=== PATIENT | male | born 1955 | race Caucasian/White ===

== ENCOUNTER 2021-05-19 09:28 | Inpatient (IN) | payer OTHER, MEDICARE ==
[~2021-05-19] VITALS: Ht 185.4 cm; Wt 87.3 kg
[2021-05-19 10:39] LABS: Alanine Aminotransfer (ALT/SGP 16 U/L (12-78); Albumin, Blood 3.4 g/dL (3.4-5.0); Albumin/Globulin Ratio 0.9 (0.8-1.8); Alk Phos 87 U/L (50-136); Anion Gap 6 mmol/L (6-16); Aspartate Aminotrans (AST/SGOT 22 U/L (12-37); Bilirubin, Total 1.1 mg/dL (0.1-1.0); Blood Urea Nitrogen 18 mg/dL (8-24); Bun/Creatinine Ratio 16.2 (12.0-20.0); CO2, Blood 25 mmol/L (21-32); CPK Creatine Kinase 254 U/L (39-308); Chloride, Blood 109 mmol/L (98-108); Creatinine, Blood 1.11 mg/dL (0.60-1.20); Ethanol (Alcohol), Blood, Med <3 mg/dL; Globulin, Blood 3.6 g/dL (2.2-4.0); Glomerular Filtration Rate >60 (60-); Glucose, Blood 92 mg/dL (70-99); Magnesium, Blood 2.6 mg/dL (1.6-2.4); Potassium, Blood 3.8 mmol/L (3.5-5.5); Sodium, Blood 140 mmol/L (136-145)
[2021-05-19 10:59] LABS: BASOPHILS ABSOLUTE AUTO 0.02 K/mm3 (0.00-0.23); BASOPHILS PERCENT AUTO 0 % (0-2); EOSINOPHILS PERCENT AUTO 0 % (0-6); Hematocrit 41.3 % (37.0-53.0); Hemoglobin 12.9 g/dL (13.5-17.5); IMMATURE GRAN ABSOLUTE AUTO 0.06 K/mm3 (0.00-0.10); IMMATURE GRAN PERCENT AUTO 1 % (0-1); LYMPHOCYTES ABSOLUTE AUTO 0.93 K/mm3 (0.84-5.20); LYMPHOCYTES PERCENT AUTO 15 % (21-46); MONOCYTES ABSOLUTE AUTO 0.42 K/mm3 (0.16-1.47); MONOCYTES PERCENT AUTO 7 % (4-13); Mean Corpuscular HGB 30.9 pg (26.0-34.0); Mean Corpuscular HGB Conc 31.2 g/dL (31.5-36.5); Mean Corpuscular Volume 99 fL (80-100); NEUTROPHILS ABSOLUTE AUTO 4.77 K/mm3 (1.96-9.15); NEUTROPHILS PERCENT AUTO 77 % (41-73); NRBC ABSOLUTE 0.02 K/mm3 (0.00-0.02); NRBC Auto 0.3 /100 WBC (0.0-0.2); RDW Standard Deviation 54.4 fL (35.1-46.3); Red Blood Cell Count 4.17 M/mm3 (4.30-5.90)
[2021-05-19 11:02] LABS: International Normalized Ratio 1.13; Prothrombin Time Results 11.8 Sec (9.7-11.5)
[2021-05-19 11:11] LABS: Mean Platelet Volume 10.4 fL (9.1-12.4)
[2021-05-19 11:27] LABS: Source, Urine Clean Catch
[2021-05-19 11:52] LABS: Platelet Count 99 K/mm3 (150-400)
[2021-05-19 11:57] LABS: Blood, Urine 5+ (Neg); Glucose Qualitative, Urine Neg (Neg); Ketones, Urine 1+ (Neg); Leukocyte Esterase, Urine 1+ (Neg); Nitrite, Urine Pos (Neg); Protein, Urine 3+ (Neg); Specific Gravity, Urine 1.025 (1.003-1.022); Urobilinogen, Urine 1+ (Normal)
[2021-05-19 11:58] LABS: Bilirubin, Urine 1+ (Neg)
[2021-05-19 12:07] LABS: Appearance, Urine Hazy (Clear); Color, Urine Brown (P-Yellow)
[2021-05-19 12:08] LABS: Amorphous Light (0-Heavy); Bacteria Few /hpf; Mucus Heavy (0-Heavy); Red Blood Cells, Urine 25-50 /hpf (0-2); Squamous Epithelial Cells Rare /hpf (Few)
[2021-05-19 12:12] LABS: U Amphetamine Screen Not Detected; U Barbituate Screen Not Detected; U Benzodiazapine Screen Not Detected; U Buprenorphine Screen Not Detected; U Cannabinoids Screen DETECTED; U Cocaine Screen Not Detected; U Methadone Screen Not Detected; U Methamphetamine Screen Not Detected; U Opiates Screen Not Detected; U Oxycodone Screen Not Detected; U Phencyclidine Screen Not Detected; U Propoxyphene Screen Not Detected
[2021-05-19 12:13] LABS: Influenza A, PCR NEGATIVE (NEGATIVE); Influenza B, PCR NEGATIVE (NEGATIVE); Resp Syncytial Virus, PCR NEGATIVE (NEGATIVE); SARS-Cov-2 (COVID-19) PCR, MMC NEGATIVE (NEGATIVE)
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
--- NOTE | 2021-05-20 03:43 | NUR ---
SHIFT SUMMARY PT HAS SLEPT MOST OF THE NIGHT. BEDSIDE SWALLOW EVAL DONE AT BEDSIDE ORDERED AND PT DID WELL AND HAD NO DIFFICULTY SWALLOWING. THERAPY CONSULT ORDERED FOR TODAY. PT ON 6L VIA HIGH FLOW NASAL CANNULA, PT HAS BRIEF PERIODS OF APNEA WHILE SLEEPING. CPAP WAS ORDERED BUT PT TRIED AND REFUSED TO WEAR STATING THAT IT WAS UNCOMFORTABLE. PT MAINTAINS SATS IN THE MID 90'S. LUNGS COARSE WITH FINE CRACKLES. NO ACUTE CHANGES OVERNIGHT. BED IN LOWEST POSITION, CALL LIGHT WITHIN REACH.
[2021-05-20 05:03] LABS: BASOPHILS ABSOLUTE AUTO 0.01 K/mm3 (0.00-0.23); BASOPHILS PERCENT AUTO 0 % (0-2); EOSINOPHILS PERCENT AUTO 0 % (0-6); Hematocrit 36.1 % (37.0-53.0); Hemoglobin 10.8 g/dL (13.5-17.5); IMMATURE GRAN ABSOLUTE AUTO 0.02 K/mm3 (0.00-0.10); IMMATURE GRAN PERCENT AUTO 0 % (0-1); LYMPHOCYTES ABSOLUTE AUTO 0.69 K/mm3 (0.84-5.20); LYMPHOCYTES PERCENT AUTO 11 % (21-46); MONOCYTES ABSOLUTE AUTO 0.36 K/mm3 (0.16-1.47); MONOCYTES PERCENT AUTO 6 % (4-13); Mean Corpuscular HGB 31.6 pg (26.0-34.0); Mean Corpuscular HGB Conc 29.9 g/dL (31.5-36.5); Mean Platelet Volume 9.8 fL (9.1-12.4); NEUTROPHILS ABSOLUTE AUTO 5.42 K/mm3 (1.96-9.15); NEUTROPHILS PERCENT AUTO 83 % (41-73); Platelet Count 94 K/mm3 (150-400); RDW Coefficient Variation 14.8 % (11.7-14.2); RDW Standard Deviation 57.5 fL (35.1-46.3); Red Blood Cell Count 3.42 M/mm3 (4.30-5.90)
[2021-05-20 05:24] LABS: Mean Corpuscular Volume 106 fL (80-100)
[2021-05-20 05:35] LABS: Alanine Aminotransfer (ALT/SGP 13 U/L (12-78); Alk Phos 82 U/L (50-136); Anion Gap 6 mmol/L (6-16); Aspartate Aminotrans (AST/SGOT 20 U/L (12-37); Bilirubin, Total 0.6 mg/dL (0.1-1.0); Blood Urea Nitrogen 20 mg/dL (8-24); Bun/Creatinine Ratio 17.1 (12.0-20.0); CO2, Blood 31 mmol/L (21-32); Calcium, Blood 7.9 mg/dL (8.5-10.1); Chloride, Blood 106 mmol/L (98-108); Creatinine, Blood 1.17 mg/dL (0.60-1.20); Glomerular Filtration Rate >60 (60-); Glucose, Blood 87 mg/dL (70-99); Potassium, Blood 3.4 mmol/L (3.5-5.5); Sodium, Blood 143 mmol/L (136-145)
--- NOTE | 2021-05-20 06:41 | NUR ---
URINARY RETENTION PT IS RETAINING AND HAS NOT VOIDED DURING SHIFT. PT BLADDER SCANNED, [address] DINH CALLED AND NOTIFIED. RECEIVED ORDER FOR STRAIGHT CATH NOW AND BLADDER SCANS Q 6HR, STRAIGHT CATH IF GREATER THAN 330. PT STRAIGHT CATH THIS AM AFTER RECEIVING ORDER AND 800 MLS OF DARK TEA COLORED URINE OBTAINED.
--- NOTE | 2021-05-20 07:30 | NUR ---
ASUMED CARE OF PT- REPORT COMPLETED WITH NIGHT RN. PER REPORT THE PT HAD BEEN STRAIGHT CATHED AT 0630 REMOVING 800ML OF URINE. PT WAS RESPONSIVE AT THAT TIME. PT HAD REMOVED AND DECLINED THE CPAP LAST NIGHT. RT CAME TO DO A BREATHING Tx AND PT WAS INRESPONSIVE, UNABLE TO WAKE WITH STERNAL RUB. O2 SATS 97% ON 9L VIA NC. RT PLACED THE PT ON CPAP. CALLED DR MOTLEY AND REQUESTED A VBG PER RT. PT STILL UNRESPONSIVE AT THIS TIME. CALLED AUDIO VISUAL SECRETARY SBP IN THE 80'S. NURSING STAFF CALLED DR MOTLEY AND REQUESTED A TRANSFER TO PCU UNTIL PT IS MORE STABLE. PLACED THE ORDER FOR TRANSFER. PT SBP 102 JUST PRIOR TO TRANSFER, PT LUNGS SOUND VERY COARSE, CRACKLES AND RALES NOTED. ADMINISTERED IV LASIX PRIOR TO TRANSFER, PT MINIMALLY RESPONSIVE EYES TRACKING STAFF, ABLE TO FOLLOW COMMAND TO SQUEEZE WHEN ASKED. UNABLE TO PALPATE PEDAL PULSES, UNABLE TO FIND WITH DOPPLER. RADIAL PULSES PALPABLE BUT FAINT. PER TELE THE PT RUNNING SINUS BERNARD IN THE MID 50'S WITH PVC'S. UPON LEAVING THE ROOM FOR TRANSFER THE PT BECAME MORE ALERT AND TOLD STAFF HE WAS HAVING A HARD TIME MAKING WORDS, HE ALSO REQUESTED SOME COFFEE FOR HIS DRY THROAT. BEDSIDE REPORT COMPLETED WITH PCU [address] MOTLEY PLACED AN ORDER FOR CARDIOLOGY CONSULT, AUDIO VISUAL SECRETARY ETHAN PLACED A CALL TO DR GALICIA SHE IS AWARE OF THE CONSULT AND THE PT TRANSFER TO PCU.
[2021-05-20 08:12] LABS: Base Excess Venous 4.9 mmol/L; Bicarbonate Venous 27.1 mmol/L (24.0-30.0); PCO2 Venous 76.1 mmHg (38-42)
[2021-05-20 08:13] LABS: pH Blood Venous 7.24 (7.34-7.37)
--- NOTE | 2021-05-20 09:40 | NUR ---
Spoke with Primary RN Stacey earlier this AM. Pt had altered LOC and Pt will be transfered to PCU. B/P soft. At the time of this RNs' visit prior to transfer, Pt awake and resting in bed. Pt was non verbal. Significant swelling noted on BLLE. Reviewed chart and H&P which indicated that Pt did not want anyone contacted and wanted medical staff to make decisions for him. Faxed [place] with request for advanced directive and POLST. Return reply indicating no records for Pt. Called [place] POLST Registry and no POLST on file. Spoke with Dr Grimes and discussed case. Pt has guarded prognosis and is agreeable with continued medical management. Pt not a candidate for surgery. Pt is agreeable for DNR/DNI. Palliative Care will F/U for supportive and therapeutic visits.
--- NOTE | 2021-05-20 12:04 | NUR ---
AWAITING RADIOLOGIST TO ARRIVE TO ROOM, THORACENTESIS TO BE PERFORMED AT BEDSIDE
--- NOTE | 2021-05-20 12:28 | NUR ---
PT TOLERATED THORACENTESIS WELL, 1500ML DRAINED FROM RT LUNG, DIFFICULT TO OBTAIN SPO2 READING R/T PERFUSSION
[2021-05-20 12:55] LABS: Automated BF WBC Count 0.175 K/mm3 (0-999); Body Fluid WBC Count 175 /mm3 (0-999)
--- NOTE | 2021-05-20 13:15 | NUR ---
CALL PLACED TO DR MOTLEY REGARDING HYPOTENSION, NEW ORDER OBTAINED FOR NS AT 75ML/HR. PT REPOSITIONED FOR COMFORT. BLADDER SCAN REVEALED 1000ML URINE, TOVAR CATH TO BE PLACED.
[2021-05-20 13:23] LABS: Protein, Body Fluid 2.2 g/dL
[2021-05-20 14:11] LABS: RBC Count, Body Fluid 28 /mm3 (0-0)
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
--- NOTE | 2021-05-20 17:56 | NUR ---
SHIFT NOTE PT SENT FROM MEDICAL FLOOR THIS AM FOR AMS WITH INCREASED CO2. UPON ARRIVAL TO UNIT PT A/O X2. SOFT BP NOTED T/O THE DAY, DR MOTLEY WAS CALLED AND NEW ORDER WAS OBTAINED FOR FLUIDS PRESSURES CONTINUED TO DECREASE. PT WAS REMOVED FROM CPAP TODAY AND PLACED ON 3L NC, WITH SPO2 94%. DR MOTLEY STOPPED BY TO SEE PT IN THE EARLY EVENING AND ORDER WAS PROVIDED FOR CLEAR LIQUIDS PENDING BEDSIDE SWALLOW AND ADVANCE DIET TOLERATED. PT PASSED BEDSIDE SWALLOW, WAS STARTED AT CLEAR LIQUID, WILL CONTINUE TO ASSESS FOR ADVANCEMENT. PT REMAINS A/O X2 AT THE TIME OF THIS NOTE. TOVAR DRAINING TO GRAVITY. PT WITH A LOOSE BM TODAY.
--- NOTE | 2021-05-20 19:55 | NUR ---
Assumed care of pt at 1900. DNR. A/Ox2-3. Q2 turns. Maintains above 95% on 2.5L NC. LS course t/o with a very weak cough noted that isn't strong enough to produce sputum. Tele monitoring, SB. SBP in 70's and MAP 50-60. Edema BLE 3+ with weeping wounds, and BUE trace. Incontinent. Large amounts of brown jelly type stool. Urinary cath in place draining clear/yellow urine. Multiple wounds on extremities. BLE wounds cleansed with wound janitor cleaner and nonadherent pads applied with kerlex over. Will update as changes occur.
[2021-05-20 20:26] LABS: Appearance, Body Fluid Clear (Clear); Color, Body Fluid Yellow (None-Yellow); Total Cell Count, Body Fluid 100
[2021-05-21 03:39] LABS: Hematocrit 36.8 % (37.0-53.0); Hemoglobin 10.5 g/dL (13.5-17.5); Mean Corpuscular HGB 30.9 pg (26.0-34.0); Mean Corpuscular HGB Conc 28.5 g/dL (31.5-36.5); Mean Corpuscular Volume 108 fL (80-100); Mean Platelet Volume 10.2 fL (9.1-12.4); Platelet Count 89 K/mm3 (150-400); RDW Coefficient Variation 14.8 % (11.7-14.2); RDW Standard Deviation 59.1 fL (35.1-46.3); White Blood Cell Count 5.33 K/mm3 (4.00-11.30)
[2021-05-21 04:03] LABS: Anion Gap 9 mmol/L (6-16); Blood Urea Nitrogen 18 mg/dL (8-24); Bun/Creatinine Ratio 16.7 (12.0-20.0); CO2, Blood 26 mmol/L (21-32); Calcium, Blood 7.4 mg/dL (8.5-10.1); Chloride, Blood 107 mmol/L (98-108); Creatinine, Blood 1.08 mg/dL (0.60-1.20); Glomerular Filtration Rate >60 (60-); Glucose, Blood 90 mg/dL (70-99); Potassium, Blood 3.1 mmol/L (3.5-5.5); Sodium, Blood 142 mmol/L (136-145)
--- NOTE | 2021-05-21 08:26 | NUR ---
PT TRANSPORTED TO ICU, JOSEPH RN WILL ASSUME CARE IN ICU. MORNING ASSESSMENT WAS NOT FULL COMPLETED, TAILOR HELPER IS AWARE OF THAT AND WILL COMPLETE ASSESSMENT. PT ON 2.5L O2 VIA NASAL CANNULA, HE IS ALERT, EXPRESSED UNDERSTANDING OF REASON FOR TRANSFER TO ICU. DR SALAZAR WAS IN TO ASSESS PT THIS MORNING WHEN DECISION WAS MADE TO TRANSFER PT TO ICU FOR DOBUTAMINE DRIP. PT REPORTS IMPROVEMENT IN BREATHING, SPEECH APPEAR MORE CLEAR AND LESS SLURRED FROM YESTERDAY. MORNING MEDICATIONS WERE PULLED BUT NOT GIVEN THEY WERE TRANSPORTED TO ICU WITH PT TO BE ADMINISTERED THERE. JOSEPH MADE AWARE THAT PT PHARMACY HAS SUGGESTED LEVOTHYROXINE BE INCREASED
--- NOTE | 2021-05-21 08:31 | NUR ---
ASSUME CARE: I have assumed care of this patient. Report was received from Sally THRESHER BROOMCORN.
--- NOTE | 2021-05-21 13:04 | NUR ---
UPDATE: Dr. Beach called and notified that this RN is unable to find pt's left DP pulse with doppler. Pt denies any complaints of pain to the foot. Bilateral capillary refil has been delayed and bilateral feet have been cool since I assumed care of this pt. Continue to monitor per Dr. Beach.
--- NOTE | 2021-05-21 18:47 | NUR ---
UPDATE: This RN spoke with Dr. Francois to clarify plan of care. Verbal orders to start dobutamine at 2.5 mcg and increase levothyroxine to 125. She will come to round on pt tonight to consider diuresis.
--- NOTE | 2021-05-21 19:06 | NUR ---
SHIFT SUMMARY: Pt transferred to ICU this morning for dobutamine drip. Drip was started at 1 mcg per order; pt tolerated this well, MAP has been above 65 with systolics in the 90's. PICC line was not placed today; when discussed with PICC nurse, she noted the low dose of dobutamine and short duration as rational. NS running at 75 mls/hr. 700mls of concentrated urine out today. Pt had small BM. He denies any pain other then some tender bruising. Left DP pulse was found by doppler. Pt made NPO by speech therapy. Hair was shaved per pt request due to severe matting. Wounds on shins and left heal were rephotographed, cleaned, and redressed. Wound on right buttock was cleansed and barrier cream applied. Pt was turned q2 hours with heals and buttocks both floated on pillows to prevent worsening of existing wounds. environmental services tech consult placed today by RN. 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 After conversation with Dr. Francois, dobutamine was restarted at 2.5; daily levothyroxine dose increased to 125mcg and one time dose of 50mcgs ordered. Report given to night time nanny RN.
--- NOTE | 2021-05-21 23:30 | NUR ---
ASSUMPTION OF CARE PT ALERT AND ORIENTED, SITTING IN BED. DENIES CP, NO COMPLAINTS OTHER THAN REQUESTING COFFEE AND FOOD, PT NPO. SKIN INTACT BUT VERY FRAGILE c LARGE AREAS OF BRUISING ON EXTREMITIES AND FACE, PICTURES IN CHART. MOVING EXTREMITIES BUT WEAK, ABLE TO ASSIST WITH TURNS. DOBUTAMINE GTT INITIALLY INFUSING @ 2.5MCG/KG/MIN, DR SALAZAR CAME TO SEE PT SHORTLY AFTER 2200, INCREASED DOBUTAMINE GTT TO 5MCG/KG/MIN. PLAN TO REMAIN @ 5MCG/KG/MIN UNTIL TOMORROW MORNING, DR SALAZAR WILL REASSESS AT THAT TIME. VSS AT THIS TIME. WILL CONTINUE TO MONITOR CLOSELY.
[2021-05-22 03:18] LABS: Hematocrit 26.6 % (37.0-53.0); Hemoglobin 8.2 g/dL (13.5-17.5); Mean Corpuscular HGB 31.4 pg (26.0-34.0); Mean Corpuscular HGB Conc 30.8 g/dL (31.5-36.5); Mean Platelet Volume 9.8 fL (9.1-12.4); Platelet Count 73 K/mm3 (150-400); RDW Coefficient Variation 14.8 % (11.7-14.2); RDW Standard Deviation 54.5 fL (35.1-46.3); Red Blood Cell Count 2.61 M/mm3 (4.30-5.90); White Blood Cell Count 3.93 K/mm3 (4.00-11.30)
[2021-05-22 03:19] LABS: Mean Corpuscular Volume 102 fL (80-100)
[2021-05-22 03:38] LABS: Anion Gap 5 mmol/L (6-16); Blood Urea Nitrogen 14 mg/dL (8-24); Bun/Creatinine Ratio 15.5 (12.0-20.0); CO2, Blood 30 mmol/L (21-32); Calcium, Blood 7.4 mg/dL (8.5-10.1); Chloride, Blood 106 mmol/L (98-108); Glomerular Filtration Rate >60 (60-); Glucose, Blood 97 mg/dL (70-99); Magnesium, Blood 2.2 mg/dL (1.6-2.4); Potassium, Blood 3.4 mmol/L (3.5-5.5); Sodium, Blood 141 mmol/L (136-145)
--- NOTE | 2021-05-22 06:19 | NUR ---
SHIFT SUMMARY PT ALERT AND ORIENTED, HARD OF HEARING. ABLE TO SLEEP FOR SHORT PERIODS, OCCASIONALLY DESATS TO MID 80'S WHEN ON RA WHILE SLEEPING. PLACED 2LPM O2 VIA NC, O2 SATS >90%. DENIES C/O CP OR SOB. DOBUTAMINE CONTINUES @ 5MCG/KG/MIN, SBP 90'S-100. TOVAR CATH DRAINING BETZAIDA URINE. NO ACUTE CHANGES IN PT CONDITION, REPORT TO ONCOMING NURSE.
--- NOTE | 2021-05-22 07:22 | NUR ---
ASSUME CARE: I have assumed care of this patient. At this time he is resting in bed conversing with staff. Dobutamine running at 75mcg, NS at 75mls.
--- NOTE | 2021-05-22 07:30 | NUR ---
UPDATE: Discussed PICC line placement with transmitter engineer in charge. Will work on getting line placed today since there is a PICC nurse on the unit.
[2021-05-22 09:30] LABS: BASOPHILS PERCENT AUTO 0 % (0-2); EOSINOPHILS PERCENT AUTO 0 % (0-6); Hematocrit 25.8 % (37.0-53.0); Hemoglobin 7.9 g/dL (13.5-17.5); IMMATURE GRAN ABSOLUTE AUTO 0.03 K/mm3 (0.00-0.10); IMMATURE GRAN PERCENT AUTO 1 % (0-1); LYMPHOCYTES ABSOLUTE AUTO 0.58 K/mm3 (0.84-5.20); LYMPHOCYTES PERCENT AUTO 15 % (21-46); MONOCYTES ABSOLUTE AUTO 0.23 K/mm3 (0.16-1.47); MONOCYTES PERCENT AUTO 6 % (4-13); Mean Corpuscular HGB 31.1 pg (26.0-34.0); Mean Corpuscular HGB Conc 30.6 g/dL (31.5-36.5); Mean Corpuscular Volume 102 fL (80-100); Mean Platelet Volume 9.5 fL (9.1-12.4); NEUTROPHILS ABSOLUTE AUTO 3.15 K/mm3 (1.96-9.15); NEUTROPHILS PERCENT AUTO 79 % (41-73); Platelet Count 75 K/mm3 (150-400); RDW Standard Deviation 55.8 fL (35.1-46.3); Red Blood Cell Count 2.54 M/mm3 (4.30-5.90); White Blood Cell Count 3.99 K/mm3 (4.00-11.30)
[2021-05-22 09:43] LABS: Alanine Aminotransfer (ALT/SGP 12 U/L (12-78); Albumin, Blood 2.8 g/dL (3.4-5.0); Alk Phos 61 U/L (50-136); Anion Gap 4 mmol/L (6-16); Aspartate Aminotrans (AST/SGOT 16 U/L (12-37); Bilirubin, Total 0.4 mg/dL (0.1-1.0); Blood Urea Nitrogen 13 mg/dL (8-24); Bun/Creatinine Ratio 13.8 (12.0-20.0); CO2, Blood 31 mmol/L (21-32); Calcium, Blood 7.3 mg/dL (8.5-10.1); Chloride, Blood 105 mmol/L (98-108); Creatinine, Blood 0.94 mg/dL (0.60-1.20); Globulin, Blood 2.8 g/dL (2.2-4.0); Glomerular Filtration Rate >60 (60-); Glucose, Blood 72 mg/dL (70-99); Potassium, Blood 3.6 mmol/L (3.5-5.5); Sodium, Blood 140 mmol/L (136-145); Total Protein, Blood 5.6 g/dL (6.4-8.2)
--- NOTE | 2021-05-22 13:33 | NUR ---
NG PLACEMENT: NG tube placement attempted and unsuccessful by this RN and battery charger with both esther and yandel style.
--- NOTE | 2021-05-22 18:12 | NUR ---
SHIFT SUMMARY: Dobutamine running at 7.5 and NS at 75 through PICC line. Total UOP this shift 1825 mls; fluid balance -548. PICC line dressing changed due to bleeding. Wounds cleaned and redressed with pink foam dressings. Pt was up in chair for about two hours for speech reeval; pt still NPO. NG tube was attempted, but unsuccessful. Provider was notified and dietitian plans to order enteral nutrition tomorrow. Although he is still somnolent, pt does seem to be more alert and responsive while awake.
--- NOTE | 2021-05-22 21:03 | NUR ---
SHIFT ASSESSMENT ASSUMED CARE OF PT @ 1900. PT SITTING UPRIGHT IN BED, ALERT AND ORIENTED. FOLLOWING ALL COMMANDS. DENIES CP OR SOB. CONTINUES TO REQUEST FOOD AND COFFEE. DOBUTAMINE GTT @ 7.5MCG/KG/MIN. VSS. TOVAR CATH PATENT, DRAINING BETZAIDA URINE. WILL CONTINUE TO MONITOR CLOSELY.
[2021-05-23 03:36] LABS: BASOPHILS PERCENT AUTO 0 % (0-2); EOSINOPHILS ABSOLUTE AUTO 0.01 K/mm3 (0.00-0.68); EOSINOPHILS PERCENT AUTO 0 % (0-6); Hematocrit 24.8 % (37.0-53.0); Hemoglobin 7.5 g/dL (13.5-17.5); IMMATURE GRAN ABSOLUTE AUTO 0.03 K/mm3 (0.00-0.10); IMMATURE GRAN PERCENT AUTO 1 % (0-1); LYMPHOCYTES ABSOLUTE AUTO 0.55 K/mm3 (0.84-5.20); LYMPHOCYTES PERCENT AUTO 16 % (21-46); MONOCYTES ABSOLUTE AUTO 0.17 K/mm3 (0.16-1.47); MONOCYTES PERCENT AUTO 5 % (4-13); Mean Corpuscular HGB 30.9 pg (26.0-34.0); Mean Corpuscular HGB Conc 30.2 g/dL (31.5-36.5); Mean Corpuscular Volume 102 fL (80-100); Mean Platelet Volume 9.9 fL (9.1-12.4); NEUTROPHILS PERCENT AUTO 77 % (41-73); Platelet Count 78 K/mm3 (150-400); RDW Coefficient Variation 15.1 % (11.7-14.2); RDW Standard Deviation 56.5 fL (35.1-46.3); Red Blood Cell Count 2.43 M/mm3 (4.30-5.90); White Blood Cell Count 3.36 K/mm3 (4.00-11.30)
[2021-05-23 03:57] LABS: Albumin, Blood 2.7 g/dL (3.4-5.0); Anion Gap 4 mmol/L (6-16); Blood Urea Nitrogen 10 mg/dL (8-24); CO2, Blood 31 mmol/L (21-32); Calcium, Blood 7.3 mg/dL (8.5-10.1); Chloride, Blood 104 mmol/L (98-108); Creatinine, Blood 0.77 mg/dL (0.60-1.20); Ferritin, Serum 195 ng/mL (26-388); Glomerular Filtration Rate >60 (60-); Glucose, Blood 80 mg/dL (70-99); Iron Serum 53 ug/dL (65-175); Percent Saturation 19.4 % (20.0-50.0); Phosphorus, Blood 1.3 mg/dL (2.5-4.9); Potassium, Blood 3.6 mmol/L (3.5-5.5); Sodium, Blood 139 mmol/L (136-145); Thyroxine (T4) 2.4 ug/dL (4.5-12.1); Total Iron Binding Capacity 273 ug/dL (250-450)
--- NOTE | 2021-05-23 05:59 | NUR ---
SHIFT SUMMARY PT ALERT AND ORIENTED, CONTINUES TO REQUEST FOOD AND COFFEE, PROVIDED ICE CHIPS. REMAINS ON DOBUTAMINE @ 7.5MCG/KG/MIN, VSS. 30MMOL KPHOS INFUSING THIS AM. PT DENIES CP OR SOB. PLACED ON 2LPM O2 VIA NC WHILE SLEEPING, SATS >90%. TOVAR CATH DRAINING BETZAIDA URINE, 950ML OUT. NO BM. NO OTHER ACUTE CHANGES DURING THE NIGHT.
--- NOTE | 2021-05-23 09:05 | NUR ---
AM NOTE.... ASSUMED CARE OF PT AT 0900, THE PT IS A&Ox4. HE IS ON A DOBUTAMINE DRIP RUNNING AT 5MCG/KG/MIN WITH MAPS >65. THE PT CURRENTLY HAS 4+ PITTING EDEMA NOTED TO HIS BLE AND NONPITTING EDEMA TO HIS TORSO. THE PT IS CURRENTLY ON RA WITH O2 SATS 90-96% L/S COARSE WHEEZES T/O DIM IN THE BASES. A BREATHING TREATMENT WAS REQUESTED BY THE PT AND RT NOTIFIED. BT PRESENT AND HYPOACTIVE, ABD IS SOFT AND NONTENDER TO PALP. PT IS CURRENTLY NPO D/T FAILING A SWALLOW EVALUATION. THE PT'S TOVAR IS PATENT AND DRAINING TO GRAVITY. WILL CONTINUE TO MONITOR.
--- NOTE | 2021-05-23 10:57 | NUR ---
PT UPDATE.... THE PT'S DOBUTAMIN DRIP WAS TURNED FROM 5MCG/KG/MIN TO 3MCG/KG/MIN PER DR. LUNDY. THE PT'S VS STABLE WITH MAPS >65 AND GOOD URINE OUTPUT. WILL CONTINUE TO MONITOR.
--- NOTE | 2021-05-23 17:47 | NUR ---
SHFIT SUMMARY.... NO ACUTE NEGATIVE CHANGES NOTED THIS SHIFT, THE PT'S DOBUTAMINE DRIP IS CURRENTLY RUNNING AT 3MCG/KG/MIN. THE PT HAS BEEN ON RA T/O THIS SHIFT WITH O2 SATS >92% UNLESS THE PT WAS SLEEPING THEN THEY WOULD DROP TO THE LOW 90'S BUT THEY WOULD QUICKLY IMPROVE ONCE THE PT WOKE UP. THE PT DENIED ANY CHEST PAIN/PRESSURE THIS SHIFT. HE WAS GIVEN A BED BATH AND LINEN CHANGE. THE PT DID NOT HAVE A BM. THE PT WAS STARTED ON TPN D/T FAILING HIS SWALLOW EVAL AGAIN TODAY, THE PLAN IS TO DO A BARIUM SWALLOW EVAL ON TUESDAY THE . THE PT'S TOVAR IS PATENT AND DRAINING CLEAR YELLOW URINE TO GRAVITY. THE PT'S DRESSINGS ON HIS LEGS WERE CHANGED AND A PREVENTATIVE DRESSING WAS PLACED ON THE PT'S COCCYX. CALL LIGHT IN REACH WILL CONTINUE TO MONITOR UNTIL REPORT IS GIVEN TO ONCOMING RN.
--- NOTE | 2021-05-23 21:21 | NUR ---
SHIFT ASSESSMENT PT A&OX4, WEAKLY MOVING ALL EXTREMITIES. DENIES CP. ON 2LPM O2 VIA NC WHILE SLEEPING. 2MCG/KG/MIN DOBUTAMINE INFUSING VIA R PICC, MAP >65, CURRENT URINE OUTPUT OF 50ML/HR VIA TOVAR CATH. URINE YELLOW & CLEAR. PT FAILED SWALLOW EVAL, TPN INFUSING IN R PICC. WILL CONTINUE TO TITRATE DOBUTAMINE TOLERATED.
--- NOTE | 2021-05-23 23:19 | NUR ---
UPDATE PT ON DOBUTAMINE @ 2MCG/KG/MIN, URINE OUTPUT APPROXIMATELY 35CC/HR. CONTACTED DR MCNEIL, ADVISED TO MAINTAIN DOBUTAMINE @ 2MCG/KG/MIN OVER NIGHT, NO TITRATION. ALSO ADMINISTERED ONE TIME DOSE OF 20MG FUROSEMIDE. WILL CONTINUE TO MONITOR CLOSELY.
[2021-05-24 03:57] LABS: BASOPHILS ABSOLUTE AUTO 0.01 K/mm3 (0.00-0.23); BASOPHILS PERCENT AUTO 0 % (0-2); EOSINOPHILS PERCENT AUTO 0 % (0-6); Hematocrit 25.8 % (37.0-53.0); Hemoglobin 7.9 g/dL (13.5-17.5); IMMATURE GRAN ABSOLUTE AUTO 0.01 K/mm3 (0.00-0.10); IMMATURE GRAN PERCENT AUTO 0 % (0-1); LYMPHOCYTES ABSOLUTE AUTO 0.48 K/mm3 (0.84-5.20); LYMPHOCYTES PERCENT AUTO 14 % (21-46); MONOCYTES ABSOLUTE AUTO 0.14 K/mm3 (0.16-1.47); MONOCYTES PERCENT AUTO 4 % (4-13); Mean Corpuscular HGB 31.2 pg (26.0-34.0); Mean Corpuscular HGB Conc 30.6 g/dL (31.5-36.5); Mean Corpuscular Volume 102 fL (80-100); Mean Platelet Volume 9.5 fL (9.1-12.4); NEUTROPHILS ABSOLUTE AUTO 2.69 K/mm3 (1.96-9.15); NEUTROPHILS PERCENT AUTO 81 % (41-73); Platelet Count 75 K/mm3 (150-400); Red Blood Cell Count 2.53 M/mm3 (4.30-5.90); White Blood Cell Count 3.33 K/mm3 (4.00-11.30)
[2021-05-24 04:15] LABS: Alanine Aminotransfer (ALT/SGP 17 U/L (12-78); Albumin, Blood 2.6 g/dL (3.4-5.0); Albumin/Globulin Ratio 0.9 (0.8-1.8); Alk Phos 54 U/L (50-136); Anion Gap 4 mmol/L (6-16); Aspartate Aminotrans (AST/SGOT 19 U/L (12-37); Bilirubin, Total 0.3 mg/dL (0.1-1.0); Blood Urea Nitrogen 11 mg/dL (8-24); Bun/Creatinine Ratio 16.6 (12.0-20.0); CO2, Blood 33 mmol/L (21-32); Calcium, Blood 7.1 mg/dL (8.5-10.1); Chloride, Blood 101 mmol/L (98-108); Creatinine, Blood 0.66 mg/dL (0.60-1.20); Globulin, Blood 2.8 g/dL (2.2-4.0); Glomerular Filtration Rate >60 (60-); Glucose, Blood 100 mg/dL (70-99); Magnesium, Blood 2.3 mg/dL (1.6-2.4); Phosphorus, Blood 1.7 mg/dL (2.5-4.9); Potassium, Blood 3.8 mmol/L (3.5-5.5); Sodium, Blood 138 mmol/L (136-145); Total Protein, Blood 5.4 g/dL (6.4-8.2); Triglycerides 88 mg/dL (30-160)
--- NOTE | 2021-05-24 06:08 | NUR ---
SHIFT SUMMARY NO ACUTE CHANGES DURING THE NIGHT. PT DENIES CP OR SOB. DOBUTAMINE GTT REMAINS @ 2MCG/KG/MIN. MAP >65. URINE OUTPUT >50CC/HR AFTER ONE TIME DOSE OF FUROSEMIDE. URINE LIGHT YELLOW. DRESSINGS TO BLE CHANGED DURING THE NIGHT, WEEPING EDEMA/ BLISTERS TO BOTH LEGS. NO BM THIS SHIFT. REPORT TO ONCOMING NURSE.
--- NOTE | 2021-05-24 07:42 | NUR ---
AM NOTE.... ASSUMED CARE OF PT AT 0700, THE PT IS A&Ox4. HE IS CURRENTLY ON A DOBUTAMINE DRIP RUNNING AT 2MCG/KG/MIN WITH MAPS>65 AND URINARY OUTPUT APROX 60MLS/HR AT THIS TIME. THE PT IS ON RA WITH O2 SATS >92% L/S COARSE WITH WHEEZES AND CRACKLES NOTED IN THE LEFT BASE. THE PT IS IN SR IN THE 60'S-70'S. THE PT HAS 4+ PITTING/WHEEPING EDEMA NOTED TO HIS BLE WITH BLISTERS NOTED. THE PT ALSO HAS MULTIPLE WOUNDS TO HIS BLE THAT ARE ALSO WHEEPING. THE PT'S BT PRESENT AND HYPOACTIVE,ABD HAS MODERATE DISTENTION AND IS FIRM TO PALPATION, THE PT STATES THIS CAN BE NORMAL FOR HIM, THE PT DENIES ANY ABD PAIN, CHEST PAIN/PRESSURE. THE PT'S TOVAR IS PATENT AND DRAINING TO GRAVITY. WILL CONTINUE TO MONITOR.
--- NOTE | 2021-05-24 11:02 | NUR ---
PT UPDATE.... THE PT WORKED WITH PT/OT AND WAS ABLE TO GET INTO THE CHAIR WITH A STAND/TURN/PIVOT WITH THE FWW. THE PT TOLERATED THIS WELL. THE PT'S VS STABLE DURING THIS TRANSFER. WILL CONTINUE TO MONITOR.
--- NOTE | 2021-05-24 15:17 | NUR ---
PT UPDATE.... PT BACK TO BED USING THE LIFT, THE DRESSINGS ON THE PT'S LEGS WERE CHANGED D/T WHEEPING. THE PT'S DOBUTAMINE WAS STOPPED PER DR. MCNEIL'S VERBAL ORDER. WILL CONTINUE TO MONITOR.
--- NOTE | 2021-05-24 17:21 | NUR ---
Supportive visit this afternoon. Spoke with Primary RN Sherrill and discussed case. Pt has failed his swallow evaluation and plan is for modified barrium swallow study tomorrow. Pt resting in bed watching television upon arrival. Engaged in therapeutic discussion regarding the importance of having friends or family listed to contact. Pt reports being estranged from his family for a long time, stating he can't remember how long it's been since he has spoken with any family. He reports having 3 children: Allison, Dieudonne, and Kriss who last he heard lived in [place]. He report Allison and Dieudonne carry is last name. He reports having 2 sisters Kaylie and Chanell who live in [place]. He is unsure of their last names. Pt states not having any reliable friends. Continued supportive listening. Palliative Care will remain available.
--- NOTE | 2021-05-24 17:59 | NUR ---
SHIFT SUMMARY.... NO ACUTE NEGATIVE CHANGES NOTED THIS SHIFT. THE PT'S VS HAVE BEEN STABLE. THE DOBUTAMINE DRIP WAS STOPPED AT 1500. THE PT'S URINARY OUTPUT FOR THIS SHIFT HAS BEEN 2000MLS. THE PT DID NOT HAVE A BM THIS SHIFT, HE CONTINUES TO BE NPO. THE PLAN IS FOR THE PT TO HAVE A BARIUM SWALLOW EVALUATION TOMORROW. THE PT WAS UP IN THE CHAIR APROX 3 HOURS AFTER WORKING WITH PT/OT TO STAND AND PIVOT TRANSFER INTO THE RECLINER. CALL LIGHT IN REACH WILL CONTINUE TO MONITOR UNTIL REPORT IS GIVEN TO ONCOMING RN.
--- NOTE | 2021-05-24 19:34 | NUR ---
ASSUMED CARE PATIENT LYING IN BED ASLEEP WITH OXYGEN FACEMASK IN PLACE RECEIVING BREATHING TREATMENT. NO FAMILY AT BEDSIDE. TPN INF @ 75ML/HR TO RANCHO PICC; 20G IN LFA SALINE LOCKED. TOVAR PATENT AND DRAINING LIGHT YELLOW CLEAR URINE TO GRAVITY. PATIENT IS EASILY AROUSABLE FROM SLEEP. REPORT COMPLETED WITH FREYA BOBO.
[2021-05-25 04:36] LABS: Hematocrit 25.4 % (37.0-53.0); Mean Corpuscular HGB 31.5 pg (26.0-34.0); Mean Corpuscular HGB Conc 31.5 g/dL (31.5-36.5); Mean Corpuscular Volume 100 fL (80-100); Mean Platelet Volume 10.7 fL (9.1-12.4); Platelet Count 60 K/mm3 (150-400); RDW Coefficient Variation 14.9 % (11.7-14.2); RDW Standard Deviation 54.6 fL (35.1-46.3); Red Blood Cell Count 2.54 M/mm3 (4.30-5.90); White Blood Cell Count 3.41 K/mm3 (4.00-11.30)
[2021-05-25 04:57] LABS: Alanine Aminotransfer (ALT/SGP 12 U/L (12-78); Albumin, Blood 2.5 g/dL (3.4-5.0); Albumin/Globulin Ratio 0.9 (0.8-1.8); Alk Phos 52 U/L (50-136); Anion Gap 3 mmol/L (6-16); Aspartate Aminotrans (AST/SGOT 13 U/L (12-37); Bilirubin, Direct 0.2 mg/dL (0.0-0.3); Bilirubin, Indirect 0.2 mg/dL (0.1-0.7); Bilirubin, Total 0.4 mg/dL (0.1-1.0); Blood Urea Nitrogen 20 mg/dL (8-24); Bun/Creatinine Ratio 35.3 (12.0-20.0); CO2, Blood 34 mmol/L (21-32); Calcium, Blood 7.3 mg/dL (8.5-10.1); Chloride, Blood 97 mmol/L (98-108); Creatinine, Blood 0.57 mg/dL (0.60-1.20); Globulin, Blood 2.7 g/dL (2.2-4.0); Glomerular Filtration Rate >60 (60-); Glucose, Blood 84 mg/dL (70-99); Magnesium, Blood 2.2 mg/dL (1.6-2.4); Potassium, Blood 4.1 mmol/L (3.5-5.5); Sodium, Blood 134 mmol/L (136-145); Total Protein, Blood 5.2 g/dL (6.4-8.2)
--- NOTE | 2021-05-25 06:35 | NUR ---
SHIFT SUMMARY PATIENT WAS ABLE TO TAKE NIGHT MEDS IN APPLESAUCE SUCCESSFULLY. REMAINED ON 2L NC DURING THE SHIFT TO PREVENT DESATTING. SPO2 MAINTAINED HIGH 90'S-100%. PATIENT HAD OVER 2L URINE OUT DURING SHIFT. TPN STILL INF. LABS SHOWED LOW PHOS AT 2.0; CALLED DR. DINH AND ORDERS RECEIVED OR 30MMOL NA PHOS. NO OTHER MAJOR CHANGES DURING SHIFT.
--- NOTE | 2021-05-25 09:00 | NUR ---
AM NOTE... ASSUMED CARE OF PT AT 0700, THE PT IS A&Ox4 WITH SOME FORGETFULLNESS AT TIMES. THE PT IS ON 2L NC WHILE SLEEPING AND RA WHILE AWAKE. THE PT'S L/S COARSE T/O DIM IN THE BASES. THE PT IS IN SR IN THE 60'S-70'S BP IS SOFT BUT STABLE WITH MAPS >65, THE PT'S TOVAR IS PATENT AND DRAINING CLEAR YELLOW URINE TO GRAVITY. THE PT'S BT PRESENT AND HYPOACTIVE, HE IS NPO UNTIL THE BARIUM SWALLOW STUDY TODDAY AT 1100. THE PT HAS 3+ PITTING AND WHEEPING EDEMA NOTED TO HIS BLE DEPENDENT EDEMA NOTED TO HIS TORSO AND BUE. THE PT DENIES ANY CHEST PAIN/PRESSURE N/V OR SOB. WILL CONTINUE TO MONITOR.
--- NOTE | 2021-05-25 11:21 | NUR ---
PT UPDATE... PT WORKED WITH PT/OT TO GET UP INTO THE RECLINER CHAIR. HE WAS TAKEN TO XRAY FOR THE BARIUM SWALLOW STUDY AT 1100.
--- NOTE | 2021-05-25 17:24 | NUR ---
SHIFT SUMMARY.... THE PT RETURNED FROM THE BARIUM SWALLOW AND WAS GIVEN A PUREE DIET WITH THIN LIQUID BY SPOON. THIS RN HELPED THE PT WITH HIS MEAL, THE PT NEEDED FREQUENT REMINDERS TO EAT SLOWLY AND SMALL BITES. AFTER EATING THE PT'S L/S WERE UNCHANGED FROM EARLIER ASSESSMENTS BUT HIS O2 SATS DROPPED DOWN TO 86-88% HE WAS THEN PLACED ON 6L NC TO IMPROVE THE O2 SATS. RT WAS CALLED AND A BREATHING TREATMENT WAS GIVEN, AFTER THE TREATMENT THE PT'S O2 WAS REMOVED AND HE WAS PLACED BACK ON RA. THE PT'S BP THIS AFTERNOON HAS BEEN SOFT WITH SBPs IN THE 80'S BUT WITH MAPS >60. DR. MCNEIL WAS CALLED, THE PT'S LISINOPRIL WAS DECREASED BACK DOWN TO 2.5MG AT BEDTIME. PER DR. MCNEIL LONG THE MAP IS >60 AND THE PT IS MAKING URINE AND NOT SYMPTOMATIC HE IS OKAY WITH THESE BLOOD PRESSURES. THE PT'S TOVAR IS PATENT AND DRAINING TO GRAVITY. THE PT DID NOT HAVE A BM THIS SHIFT. HE WORKED WITH PT/OT AND WAS ABLE TO TRANSFER WITH A GAIT BELT AND WALKER FROM THE RECLINER TO THE BED. THE DRESSINGS ON THE PT'S BLE WERE CHANGED. THE PT IS TO TRANSFER TO THE PCU. CALL LIGHT IN REACH WILL CONTINUE TO [facility].
[2021-05-26 04:17] LABS: Hematocrit 26.1 % (37.0-53.0); Hemoglobin 8.3 g/dL (13.5-17.5); Mean Corpuscular HGB 31.9 pg (26.0-34.0); Mean Corpuscular HGB Conc 31.8 g/dL (31.5-36.5); Mean Corpuscular Volume 100 fL (80-100); Mean Platelet Volume 10.4 fL (9.1-12.4); Platelet Count 56 K/mm3 (150-400); RDW Standard Deviation 55.4 fL (35.1-46.3); White Blood Cell Count 3.31 K/mm3 (4.00-11.30)
[2021-05-26 04:35] LABS: Alanine Aminotransfer (ALT/SGP 13 U/L (12-78); Albumin, Blood 2.6 g/dL (3.4-5.0); Albumin/Globulin Ratio 0.9 (0.8-1.8); Alk Phos 55 U/L (50-136); Anion Gap 3 mmol/L (6-16); Aspartate Aminotrans (AST/SGOT 16 U/L (12-37); Bilirubin, Total 0.5 mg/dL (0.1-1.0); Blood Urea Nitrogen 25 mg/dL (8-24); Bun/Creatinine Ratio 36.8 (12.0-20.0); CO2, Blood 37 mmol/L (21-32); Calcium, Blood 7.9 mg/dL (8.5-10.1); Chloride, Blood 95 mmol/L (98-108); Creatinine, Blood 0.68 mg/dL (0.60-1.20); Globulin, Blood 2.9 g/dL (2.2-4.0); Glomerular Filtration Rate >60 (60-); Glucose, Blood 93 mg/dL (70-99); Phosphorus, Blood 2.8 mg/dL (2.5-4.9); Potassium, Blood 4.3 mmol/L (3.5-5.5); Sodium, Blood 135 mmol/L (136-145); Total Protein, Blood 5.5 g/dL (6.4-8.2)
--- NOTE | 2021-05-26 05:41 | NUR ---
SHIFT SUMMARY NO ACUTE CHANGES THIS SHIFT. VSS. AXO. ON 2LNC AT BEGINNING OF SHIFT, NOW ON 1LNC WITH SPO2 >92%. LUNGS STILL COARSE T/O. REMAINS SR WITH STABLE BP'S. TOVAR PATENT. SWELING TO PENIS REMAINS UNCHANGED. WOUNDS REMAIN UNCHANGED, COVERED. PICC PATENT, INFUSING WITH CPN T/O SHIFT. PT TOELRATED PO WATER INTAKE WELL WELL DINNER AND MEDS CRUSHED WITH APPLESAUCE. OTHERWISE, PT HAS BEEN RESTING T/O SHIFT. RARELY USES CALL LIGHT BUT DOES MAKE NEEDS KNOWN. BED ALARM IN PLACE.
[2021-05-26 10:22] LABS: Free Thyroxine 0.53 ng/dL (0.70-1.60)
[2021-05-26 10:24] LABS: Triiodothyronine, Free <0.50 pg/mL (2.18-3.98)
--- NOTE | 2021-05-26 17:15 | NUR ---
SHIFT SUMMARY PT HAS BEEN RESTING IN BED, NAPPING OFF AND ON. PT HAS DENIED C/O PAIN OR DISCOMFORT BUT WILL OCCASIONALLY GRIMACE DURING REPOSITIONING. PT HAS DENIED CHEST PAIN/PRESSURE. SBP HAS BEEN CONSISTENTLY LOW, 87-103, WITH MAP OF 65 OR GREATER. SPO2 >90% ON ROOM AIR TO 1L NC, AFEBRILE, SR 60'S. TPN WAS DISCONTINUED AND PT CONTINUES TO HAVE A GOOD APPETITE, EATING MOST OR ALL OF MEALS. NO ACUTE EVENTS, NO CHANGES IN CURRENT CONDITION.
[2021-05-27 04:37] LABS: Mean Corpuscular HGB 30.8 pg (26.0-34.0); Mean Corpuscular HGB Conc 30.8 g/dL (31.5-36.5); Mean Corpuscular Volume 100 fL (80-100); Mean Platelet Volume 10.5 fL (9.1-12.4); Platelet Count 68 K/mm3 (150-400); RDW Coefficient Variation 14.8 % (11.7-14.2); RDW Standard Deviation 54.7 fL (35.1-46.3)
[2021-05-27 04:56] LABS: Anion Gap 2 mmol/L (6-16); Blood Urea Nitrogen 27 mg/dL (8-24); Bun/Creatinine Ratio 38.2 (12.0-20.0); CO2, Blood 41 mmol/L (21-32); Calcium, Blood 8.5 mg/dL (8.5-10.1); Chloride, Blood 92 mmol/L (98-108); Creatinine, Blood 0.71 mg/dL (0.60-1.20); Glomerular Filtration Rate >60 (60-); Glucose, Blood 86 mg/dL (70-99); Magnesium, Blood 2.3 mg/dL (1.6-2.4); Potassium, Blood 4.4 mmol/L (3.5-5.5); Sodium, Blood 135 mmol/L (136-145)
--- NOTE | 2021-05-27 06:09 | NUR ---
SHIFT SUMMARY ASSUMED CARE OF PT AT 1900. PT IS A/OX4. PT ABLE TO MAKE NEEDS KNOWN. PT REFUSED TO BE ROTATED UNLESS ON R SIDE BECAUSE HE WAS "TIRED AND WANTS TO SLEEP". HEART SOUNDS REGULAR, PT WAS IN SINUS WITH FIRST DEGREE AND BBB AND PVC'S. LUNG SOUNDS HAVE CRACKLES AT THE BASES. PT NEEDED 1LNC PRN. PT WOULD TAKE OUT NC WHILE SLEEPING. PT HAD A TOVAR DRAINING WITH GRAVITY. PT WAS CONTIENT OF STOOL. PT HAS EXTENSIVE WOUNDS T/O BODY. PT SLEPT MOST OF THE NIGHT. PT TOOK PILLS IN APPLE SAUCE. NO ACUTE EVENTS.
--- NOTE | 2021-05-27 18:07 | NUR ---
PT SUMMARY: PT REMAINS LETHARGIC AND WEAK, LEFT SIDE MORE WEAKER, SLOW TO RESPOND MILD [place]. ALERT AND ORIENTED X3. VITALS HRR SR 55-70'S FOR THE SHIFT, BP SYSTOLIC SOFT 80-100'S, MAP KEPT ABOVE 60, SATS ABOVE 90% ON 2L OF O2, AFEBRILE. PT HAD A BED BATH TODAY ALL WOUND DRESSINGS CHANGED FOR THE SHIFT, PT NOTICED TO HAVE EDEMATOUS PENIS AND SCROTUM, KEPT ELEVATED IN PILLOW CASE SLING, TOVAR WITH NO ISSUES DRAINING PATENT VIA GRAVITY PT HAD 1600MLS URINE OUT YELLOW BETZAIDA IN COLOR. PT WAS GIVEN 250 NS BOLUS DUE TO SOFT BP'S BP WENT UP TO 100'S, DIGOXIN AND DIURETICS SWITCHED TO QOD PER DR MCNEIL. PT DENIES ANY CHEST PAIN, LIGHTHEADED/DIZZINESS. PT WORKED WITH ST/OT TODAY KEPT ON THE SAME DIET, NO ISSUES WITH PO INTAKE ATE 80-100% OF MEALS TODAY. PT WAS REPOSITIONED IN BED Q2 HRS. PT CALLS APPROPRIATELY NO OTHER ISSUES REPORTED, CALL LIGHTS IN REACH WILL REPORT TO ONCOMING SHIFT
[2021-05-28 04:15] LABS: Hematocrit 24.6 % (37.0-53.0); Hemoglobin 7.8 g/dL (13.5-17.5); Mean Corpuscular HGB 31.6 pg (26.0-34.0); Mean Corpuscular HGB Conc 31.7 g/dL (31.5-36.5); Mean Corpuscular Volume 100 fL (80-100); Platelet Count 74 K/mm3 (150-400); RDW Coefficient Variation 15.2 % (11.7-14.2); RDW Standard Deviation 56.1 fL (35.1-46.3); Red Blood Cell Count 2.47 M/mm3 (4.30-5.90); White Blood Cell Count 3.66 K/mm3 (4.00-11.30)
[2021-05-28 04:31] LABS: Alanine Aminotransfer (ALT/SGP 29 U/L (12-78); Albumin, Blood 2.7 g/dL (3.4-5.0); Albumin/Globulin Ratio 0.9 (0.8-1.8); Alk Phos 76 U/L (50-136); Anion Gap 2 mmol/L (6-16); Aspartate Aminotrans (AST/SGOT 36 U/L (12-37); Bilirubin, Total 0.3 mg/dL (0.1-1.0); Blood Urea Nitrogen 25 mg/dL (8-24); Bun/Creatinine Ratio 41.5 (12.0-20.0); CO2, Blood 40 mmol/L (21-32); Calcium, Blood 8.6 mg/dL (8.5-10.1); Chloride, Blood 92 mmol/L (98-108); Glomerular Filtration Rate >60 (60-); Glucose, Blood 87 mg/dL (70-99); Magnesium, Blood 2.3 mg/dL (1.6-2.4); Potassium, Blood 4.5 mmol/L (3.5-5.5); Sodium, Blood 134 mmol/L (136-145); Total Protein, Blood 5.7 g/dL (6.4-8.2)
--- NOTE | 2021-05-28 07:25 | NUR ---
ASSUMED CARE OF PT AT 1910. PT ORIENTED X3 OVERNIGHT, NO COMPLAINTS OF PAIN. ON RA. ADEQUATE UOP PER GUY. Q2 TURNS. WILL PASS ON TO DAY RN.
--- NOTE | 2021-05-28 16:22 | NUR ---
Spiritual Care Visit Attempted Pt. was sitting up in bed and was awake. Pt. welcomed my visit. After introductions, Pt. clarified he was not a religous man. Established rapport on the basis of humankindness. Pt. displayed eveidence of gratitude. Reinforced helpful attitudes in light of broken relationships. Pt. verbalized interest in a follow up visit tomorrow (Tue.)
--- NOTE | 2021-05-28 18:07 | NUR ---
SHIFT NOTE PT HAS BEEN RESTING WELL IN BED T/O THE DAY. A/O X2. DIET HAS BEEN ADVNACED TO MECHANICAL SOFT, WITH POOR APPETITE. VSS WITH SOFT BP. TOVAR REMAINS IN PLACE DRAINING WELL TO GRAVITY. PT DENIES PAIN, CP, SOB T/O THE DAY. THERE ARE NO OTHER ACUTE CHANGES TO DISCUSS THIS SHIFT
--- NOTE | 2021-05-29 05:48 | NUR ---
SHIFT SUMMARY ASSUMED CARE OF PT @ 1900. PT ORIENTED X3-4 OVERNIGHT, SLEPT WELL. TOVAR TO DD WITH ADEQUATE UOP, NO COMPLAINTS OF PAIN. BM X1. LUNGS COARSE ON RA. PT Q2 TURN. BED IN LOWEST POSITION WITH BED ALARM SET AND CALL LIGHT WITHIN REACH. WILL PASS ON TO DAY RN.
[2021-05-29 06:57] LABS: Anion Gap 4 mmol/L (6-16); Blood Urea Nitrogen 21 mg/dL (8-24); Bun/Creatinine Ratio 28.6 (12.0-20.0); CO2, Blood 37 mmol/L (21-32); Calcium, Blood 8.5 mg/dL (8.5-10.1); Chloride, Blood 93 mmol/L (98-108); Creatinine, Blood 0.74 mg/dL (0.60-1.20); Glomerular Filtration Rate >60 (60-); Glucose, Blood 89 mg/dL (70-99); Magnesium, Blood 2.3 mg/dL (1.6-2.4); Potassium, Blood 4.5 mmol/L (3.5-5.5); Sodium, Blood 134 mmol/L (136-145)
--- NOTE | 2021-05-29 17:19 | NUR ---
SHIFT NOTE PT REMAINS A/O X2, HE IS AWARE OF SELF AND DATE. HE DOES REPORT SOME INTERMITTENT WHEEZING WHICH RESOLVED WELL WITH BREATHIGN TREATMENT. PICC DRESSING CHANGED TODAY, WOUND DRESSINGS TO BUTTOCK AND LEGS REPLACED TODAY. Q2 HOUR REPOSITIONING T/O THE DAY. VSS, BP REMAIN SOFT. APPETITE INCREASING
[2021-05-30 05:44] LABS: Hematocrit 24.2 % (37.0-53.0); Hemoglobin 7.3 g/dL (13.5-17.5); Mean Corpuscular HGB 30.8 pg (26.0-34.0); Mean Corpuscular HGB Conc 30.2 g/dL (31.5-36.5); Mean Corpuscular Volume 102 fL (80-100); Mean Platelet Volume 10.5 fL (9.1-12.4); Platelet Count 96 K/mm3 (150-400); RDW Coefficient Variation 15.7 % (11.7-14.2); RDW Standard Deviation 57.9 fL (35.1-46.3); Red Blood Cell Count 2.37 M/mm3 (4.30-5.90); White Blood Cell Count 3.59 K/mm3 (4.00-11.30)
[2021-05-30 06:08] LABS: Alanine Aminotransfer (ALT/SGP 49 U/L (12-78); Albumin, Blood 2.7 g/dL (3.4-5.0); Albumin/Globulin Ratio 0.8 (0.8-1.8); Alk Phos 102 U/L (50-136); Anion Gap 1 mmol/L (6-16); Aspartate Aminotrans (AST/SGOT 41 U/L (12-37); Bilirubin, Total 0.5 mg/dL (0.1-1.0); Blood Urea Nitrogen 25 mg/dL (8-24); Bun/Creatinine Ratio 33.6 (12.0-20.0); CO2, Blood 38 mmol/L (21-32); Calcium, Blood 8.6 mg/dL (8.5-10.1); Chloride, Blood 94 mmol/L (98-108); Creatinine, Blood 0.74 mg/dL (0.60-1.20); Globulin, Blood 3.2 g/dL (2.2-4.0); Glomerular Filtration Rate >60 (60-); Glucose, Blood 83 mg/dL (70-99); Potassium, Blood 4.5 mmol/L (3.5-5.5); Sodium, Blood 133 mmol/L (136-145); Total Protein, Blood 5.9 g/dL (6.4-8.2)
--- NOTE | 2021-05-30 06:31 | NUR ---
SHIFT SUMMARY ASSUMED CARE OF PT @ 1900. PT ORIENTED X4 OVERNIGHT, VSS PER PT TREND. ON RA. NO COMPLAINTS OF PAIN. PT SLEPT WELL. BED IN LOWEST POSITION, BED ALARM ON, CALL LIGHT WITHIN REACH. WILL PASS ON TO DAY RN
--- NOTE | 2021-05-30 17:15 | NUR ---
SHIFT NOTE PT WORKED WITH ST/PT/OT TODAY AND DID WELL, THERE ARE NO DIET CHANGES. PT REMAINS A SUPERVISED EATER, AND IS TOLERATING DIET WELL. PT A/O X2, ORIENTED TO SELF AND YEAR. VSS WITH SOFT BP T/O THE DAY, WILL REASSESS BP BEFORE THE END OF THIS SHIFT. PT WAS MADE MEDICAL WITH TELE STATUS. BED IN LOW POSITION, CALL LIGHT WITHIN REACH. THERE ARE NO OTHERS ACUTE CHANGES TO DUSCUSS.
[2021-05-31 04:03] LABS: Hematocrit 24.4 % (37.0-53.0); Hemoglobin 7.5 g/dL (13.5-17.5); Mean Corpuscular HGB 31.4 pg (26.0-34.0); Mean Corpuscular HGB Conc 30.7 g/dL (31.5-36.5); Mean Corpuscular Volume 102 fL (80-100); Mean Platelet Volume 9.8 fL (9.1-12.4); Platelet Count 98 K/mm3 (150-400); RDW Coefficient Variation 15.9 % (11.7-14.2); RDW Standard Deviation 58.4 fL (35.1-46.3); Red Blood Cell Count 2.39 M/mm3 (4.30-5.90); White Blood Cell Count 4.01 K/mm3 (4.00-11.30)
[2021-05-31 04:24] LABS: Alanine Aminotransfer (ALT/SGP 61 U/L (12-78); Albumin, Blood 2.8 g/dL (3.4-5.0); Albumin/Globulin Ratio 0.9 (0.8-1.8); Alk Phos 99 U/L (50-136); Anion Gap 3 mmol/L (6-16); Aspartate Aminotrans (AST/SGOT 41 U/L (12-37); Bilirubin, Total 0.4 mg/dL (0.1-1.0); Blood Urea Nitrogen 31 mg/dL (8-24); Bun/Creatinine Ratio 40.2 (12.0-20.0); CO2, Blood 36 mmol/L (21-32); Calcium, Blood 8.4 mg/dL (8.5-10.1); Chloride, Blood 95 mmol/L (98-108); Creatinine, Blood 0.77 mg/dL (0.60-1.20); Glomerular Filtration Rate >60 (60-); Glucose, Blood 87 mg/dL (70-99); Potassium, Blood 4.6 mmol/L (3.5-5.5); Sodium, Blood 134 mmol/L (136-145); Total Protein, Blood 5.8 g/dL (6.4-8.2); Triglycerides 36 mg/dL (30-160)
--- NOTE | 2021-05-31 04:56 | NUR ---
SHIFT SUMMARY PT ALERT AND ORIENTED X4. HR 60'S-70'S NSR. ON RA SATS OVER 93%. BP SOFT. NO C/O OF PAIN OR DISCOMFORT. TOVAR IN PLACE DRAINING BETZAIDA URINE TO GRAVITY. ASLEEP MOST OF NIGHT. PICC LINE SALINE LOCKED, DRAWS BLOOD WELL. IN BED SLEEPING WITH CALL ALARM AT SIDE. WILL CONTINUE TO MONITOR UNTIL REPORT GIVEN TO DAYSHIFT RN
--- NOTE | 2021-05-31 16:56 | NUR ---
PT SUMMARY: NO ACUTE CHANGE FOR THE SHIFT. PT REMAINS A&O X2, VITALS HRR SINUS 60-70'S, BP SYSTOLIC REMAINS SOFT AT 90-100'S, SATS ABOVE 95% ON RA, AFEBRILE. PT ON [facility] SOFT DIET ABLE TO FEED SELF WITH NO ISSUES, SUPERVISED. PT HAD BM FOR THE SHIFT, TOVAR DRAINING PATENT VIA GRAVITY 650 URINE OUTPUT. PT ABLE TO HELP SELF TURNING IN BED, REPOSITIONED Q2 HRS. RESTING MOST OF THE SHIFT IN BED. PT DENIES ANY KIND OF PAIN/DISCOMFORT. PT AWAITING FOR PLACEMENT, CURRENTLY MEDICAL STATUS WITH TELE. NO OTHER ISSUES ENCOUNTERED, CALL LIGHTS IN REACH WILL REPORT TO ONCOMING SHIFT
--- NOTE | 2021-06-01 05:01 | NUR ---
SHIFT SUMMARY: PATIENT TRANSFERRED UP FROM PCU IN STABLE CONDITION. NO COMPLAINTS OF PAIN. LEFT SIDED WEAKNESS FROM PRIOR CVA. LCTA DIMINISHED, E/U RESP. TOVAR IN PLACE ADEQA[place] URINE OUTPUT. SCATTERED ECCYMOSHIS, SKIN BLE, MEPILEX IN PLACE, CDI. PICC WITH GOOD BLOOD RETURN.
--- NOTE | 2021-06-01 17:16 | NUR ---
Patient was alert and orient, was in good spirits and mood was congruent. Patient was bedbound but did work with therapy- speech and occupational. Patient had a bedbath as well, Patient apptite was fair, he had no complaints of pain and requested no prns. He was compliant with medications, used a denton for urine and was incont of bowel. He had an XL BM. Cont to monitor and plan is to transfer to [facility]
[2021-06-02 05:51] LABS: Hematocrit 23.5 % (37.0-53.0); Mean Corpuscular HGB 31.1 pg (26.0-34.0); Mean Corpuscular HGB Conc 29.8 g/dL (31.5-36.5); Mean Corpuscular Volume 104 fL (80-100); Platelet Count 105 K/mm3 (150-400); RDW Coefficient Variation 16.3 % (11.7-14.2); RDW Standard Deviation 61.7 fL (35.1-46.3); Red Blood Cell Count 2.25 M/mm3 (4.30-5.90); White Blood Cell Count 4.02 K/mm3 (4.00-11.30)
[2021-06-02 06:15] LABS: Anion Gap 3 mmol/L (6-16); Blood Urea Nitrogen 32 mg/dL (8-24); Bun/Creatinine Ratio 42.8 (12.0-20.0); CO2, Blood 34 mmol/L (21-32); Calcium, Blood 8.2 mg/dL (8.5-10.1); Chloride, Blood 96 mmol/L (98-108); Creatinine, Blood 0.75 mg/dL (0.60-1.20); Ferritin, Serum 309 ng/mL (26-388); Glomerular Filtration Rate >60 (60-); Glucose, Blood 87 mg/dL (70-99); Iron Serum 46 ug/dL (65-175); Percent Saturation 14.2 % (20.0-50.0); Potassium, Blood 4.7 mmol/L (3.5-5.5); Sodium, Blood 133 mmol/L (136-145); Total Iron Binding Capacity 325 ug/dL (250-450)
--- NOTE | 2021-06-02 06:29 | NUR ---
SHIFT SUMMARY Pt rested well, a/o x 3, forgetful at times. No c/o pain, ayan po well, modified diet per INSPECTOR TOOL. Pt repositioned q 2 hrs for comfort and to prevent skin breakdown. Pt has scattered bruises and skin tears, denton patent with adequate urine output, pt incontinent of soft, brown bm this shift. Anticipate d/c when medically stable and placement determined.
--- NOTE | 2021-06-02 17:06 | NUR ---
IP RECOMMENDED D/C OF PT'S TOVAR. RN CALLED MD TO CLARIFY IF THERE WERE ANY OTHER REASONS FOR PT'S TOVAR TO REMAIN. AGREED THAT TOVAR WAS IN INITIALLY FOR URINARY RETENTION UPON ADMISSION. PATIENT HAS BEEN HERE FOR 3 WEEKS. MD AGREED THAT TOVAR SHOULD BE REMOVED AND TO BLADDER SCAN Q6 FOR URINE RETENTION.
--- NOTE | 2021-06-02 18:06 | NUR ---
PATIENT ASLEEP UPON ARRIVAL. ASSESSMENT COMPLETED AND MORNING MEDS GIVEN TO PATIENT IN APPLESAUCE. PATIENT ALERT AND ORIENTED X 3 WITH SLOW RESPONSES TO QUESTIONS. TOVAR FOR URINARY RETENTION D/C'D TODAY 06/02/21. ORDERED Q6 BLADDER SCAN FOR URINARY RENTION. NO FURTHER COMPLAINTS FROM PATIENT. WILL REPORT TO ONCOMING RN UPON ARRIVAL.
[2021-06-03 07:22] LABS: Hemoglobin 7.3 g/dL (13.5-17.5); Mean Corpuscular HGB 31.3 pg (26.0-34.0); Mean Corpuscular HGB Conc 30.4 g/dL (31.5-36.5); Mean Corpuscular Volume 103 fL (80-100); Mean Platelet Volume 9.8 fL (9.1-12.4); Platelet Count 125 K/mm3 (150-400); RDW Coefficient Variation 16.9 % (11.7-14.2); RDW Standard Deviation 62.4 fL (35.1-46.3); Red Blood Cell Count 2.33 M/mm3 (4.30-5.90); White Blood Cell Count 3.46 K/mm3 (4.00-11.30)
--- NOTE | 2021-06-03 07:26 | NUR ---
SHIFT SUMMARY PT A/O X3, COOPERATIVE, TELEMETRY WAS DC'D PER ORDER, MEDS CRUSHED AND PT TOLERATED WELL, UNABLE TO URINATE AFTER TOVAR CATHETER WAS DC'D AT 1500, WAS NOTIFIED X2 AND PT WAS STRAIGHT CATH AT 2255 WITH 450ML OF UA IN RETURN AND AGAIN AT 0645 WITH RETURN OF 475ML. PT TOLERATED STRAIGHT CATHS WELL, TURNED AND REPOSITIONED Q 2 HRS PER CNAS AND PT WAS INCONTINENT OF BM X2, NO ACUTE DISTRESS THIS SHIFT, BP WAS SOFT AT TIMES AND PT WAS ASYMPTOMATIC.CHARGE NURSE GAIL PILLAI MADE AWARE.
[2021-06-03 07:45] LABS: Anion Gap 3 mmol/L (6-16); Blood Urea Nitrogen 33 mg/dL (8-24); Bun/Creatinine Ratio 44.1 (12.0-20.0); CO2, Blood 34 mmol/L (21-32); Calcium, Blood 8.4 mg/dL (8.5-10.1); Chloride, Blood 97 mmol/L (98-108); Creatinine, Blood 0.75 mg/dL (0.60-1.20); Glomerular Filtration Rate >60 (60-); Glucose, Blood 84 mg/dL (70-99); Potassium, Blood 4.9 mmol/L (3.5-5.5); Sodium, Blood 134 mmol/L (136-145)
--- NOTE | 2021-06-03 13:19 | NUR ---
Care done by CNA2 student
--- NOTE | 2021-06-03 14:46 | NUR ---
Care done by CNA2 Student
--- NOTE | 2021-06-03 18:44 | NUR ---
PATIENT SLEEPING UPON ARRIVAL. PATIENT ALERT AND ORIENT X3 WHEN AWAKE. BLADDER SCANNED AFTER LUNCH TIME AND THEN STRAIGHT CATH 550CC AFTER. CALLED MD TO FIND OUT PLAN ON CATHETERIZATION. MD RECOMMENDED PLACING TOVAR BACK ON PATIENT. RN ATTEMPTED TO PLACE TOVAR BUT WAS UNSUCCESSFUL. CALLED MD. MD ORDERS ARE TO CONTINUE STRAIGHT CATH ORDERS. COUDE CATHETER RECOMMENDED SINCE PROSTATE FEELS SWOLLEN OR ENLARGED. WILL REPORT TO RN UPON ARRIVAL.
--- NOTE | 2021-06-03 19:29 | NUR ---
Spiritual Care Visit Pt. is awake and in bed and in the middle of a breathing treatment. Pt. welcomes my visit. Pt. has previously communicated his lask of interest in spiritual matters. Facilitated a brief life story. Pt. verbalized that he is homeless. Explored sources of dignity and purpose. Offered emotional support. Pt. displayed evidence of agreement and encouragement. Pt. verbalized his appreciation for the medical care he has received. Pt. verbalized his desire to have me return before he is discharged.
--- NOTE | 2021-06-04 07:30 | NUR ---
SHIFT SUMMARY: PATIENT IS UNABLE TO VOID SPONTANIOUSLY. RETAINING URINE, ORDERS TO BLADDER SCAN Q 6H AND STRAIGHT OVER 400ML. PATIENT WAS STRAIGHT CATHED X2 FOR 900 AND 750MLS. [employer] OF STOOL X2.
--- NOTE | 2021-06-04 18:45 | NUR ---
PATIENT STABLE UPON ARRIVAL. PROTOCOL FOLLOWED TO BLADDER SCAN Q6 AND STRAIGHT CATH. MD CAME TO PATIENTS ROOMS FOR ROUNDS AND RECOMMENDED REPLACING TOVAR. THAT PATIENT HAS BEEN UNABLE TO URINATE ON HIS ON BUT FLOMAX WAS STARTED 06/03 AT 4PM. PATIENT SCROTAL AREA CONTINUES TO BE SWOLLEN. PATIENT WORKING WITH PTO, AND OT TODAY. AWAITING PLACEMENT.
--- NOTE | 2021-06-05 05:15 | NUR ---
SHIFT SUMMARY: PATIENT HAS NO COMPLAINTS THIS SHIFT. TOVAR IS PATENT FOR A CLEAR YELLOW URINE. BP TRENDS LOW DURING SLEEP, PATIENT IS ASYMPTOMATIC, NO DIZZINESS REPORTED.
--- NOTE | 2021-06-05 18:46 | NUR ---
PATIENT ASLEEP UPON ARRIVAL. FALL RISK AND ASSESSMENT COMPLETED. PATIENT SACRAL AREA LOOKS RED BUT BLANCHABLE. SKIN LOOKS IMPROVED. MEPLIX PLACED ON GUSTAVO PROMINENCE FOR PREVENTION. PATIENT WAITING FOR PLACEMENT NOT COMPLAINTS OR PAIN NOTED. WILL REPORT TO ONCOMING RN UPON ARRIVAL.
--- NOTE | 2021-06-05 20:46 | NUR ---
HOSPITALIST CONTACTED REGARDING PT'S BP CONTINUING TO BE IN THE 80S SYSTOLIC. PT NOT SYMPTOMATIC AT THIS TIME. HOSPITALIST ORDERED OT BOLUS OF 500 ML NS WIDE OPEN.
--- NOTE | 2021-06-05 23:47 | NUR ---
PT COMPLAINING OF PAIN AND SWELLING TO THE PENILE AND SCROTAL AREA. I EXAMINED THE AREA AND NOTED A LARGE SWOLLEN SCROTUM WITH SWELLING OF THE BASE AND TIP OF THE PENIS. THE PATIENT REQUESTED THAT THE TOVAR BE REMOVED BUT WAS INFORMED THAT HE WAS UNABLE TO URINATE ON HIS OWN WHEN IT WAS PREVIOUSLY REMOVED AND IS COMPLIANT WITH LEAVING THE TOVAR IN PLACE. I ELEVATED THE PATIENT'S SCROTUM WITH PILLOW CASES IN AN ATTEMPT TO ALLEVIATE HIS DISCOMFORT. PT CURRENTLY RESTING PEACEFULLY.
--- NOTE | 2021-06-06 04:11 | NUR ---
COMPANY PILOT SUMMARY ADMITTED FOR PNEUMONIA. HE IS A DNR. PT WITH TOVAR IN PLACE DUE TO URINARY RETENTION. HE REPORTED SCROTAL AND PENILE SWELLING AND PAIN - SCROTUM WAS ELEVATED WITH SLIGHT RELIEF. DISCUSSED WITH PT HIS HISTORY OF CHF AND EXPLAINED THAT THIS COULD CAUSE THE SCROTAL DISCOMFORT AND SWELLING; PT UNDERSTANDING. HE IS ALERT AND ORIENTED X3, SLIGHTLY SLOW TO RESPOND. PT CURRENTLY ON BEDREST - GETS AROUND BY WC AT BASELINE. HX OF CVA WITH L SIDED WEAKNESS; ENCOURAGED TO CONTINUE TRYING TO USE THE L SIDE. BP HAS BEEN SOFT IN THE 80S AND 90S SYSTOLIC - GIVEN 500 ML BOLUS LAST NOC WITH SLIGHT IMPROVEMENT. PT IS ASYMPTOMATIC. HE IS WAITING FOR PLACEMENT.
[2021-06-06 06:32] LABS: Hematocrit 24.6 % (37.0-53.0); Hemoglobin 7.4 g/dL (13.5-17.5); Mean Corpuscular HGB 31.9 pg (26.0-34.0); Mean Corpuscular HGB Conc 30.1 g/dL (31.5-36.5); Mean Corpuscular Volume 106 fL (80-100); Mean Platelet Volume 9.5 fL (9.1-12.4); Platelet Count 147 K/mm3 (150-400); RDW Coefficient Variation 17.9 % (11.7-14.2); RDW Standard Deviation 67.3 fL (35.1-46.3); Red Blood Cell Count 2.32 M/mm3 (4.30-5.90); White Blood Cell Count 3.38 K/mm3 (4.00-11.30)
--- NOTE | 2021-06-06 17:23 | NUR ---
PATIENT COMPLAIN OF LOW ABD PAIN/SCROTUM PAIN, MEDICATED EMR NOW PATIENT RESTING COMFORTABLY. DENIES PAIN. CALL LIGHT WITHIN REACH, BED IN LOWEST POSITION.
--- NOTE | 2021-06-07 06:43 | NUR ---
SHIFT SUMMARY PT IS A 65 Y/O MALE, ADMITTED FOR PNA. HE IS A&O X 3, BEDBOUND WITH R-SIDE WEAKNESS R/T PREVIOUS CVA. TOVAR IN PLACE FOR RETENTION. NO C/O ACUTE PAIN, NAUSEA OR SOB. BP WAS LOW THROUGH THE NIGHT, 80-90S SYSTOLIC, MAP > 60. ALL OTHER VITAL SIGNS STABLE. NO OTHER ACUTE CHANGES IN PT CONDITION NOTED DURING THE NIGHT. WILL CONTINUE TO MONITOR AND TREAT PER EMAR UNTIL HAND OFF TO DAY SHIFT RN.
--- NOTE | 2021-06-07 17:25 | NUR ---
SHIFT SUMMARY PT A&O AND IN PLEASENT MOOD T/O SHIFT. PT RESTED IN BED COMFORTABLY T/O SHIFT, TURNED Q2H. PRESSURE ULCER TO L CALF DRESSED W/ MEPILEX, AND SACRAL DRESSING CHANGED THIS SHIFT. TOVAR DRAINING TO GRAVITY. AWAITING PLACEMENT @ THIS TIME. VSS. CALL LIGHT W/IN REACH.
--- NOTE | 2021-06-08 06:04 | NUR ---
SHIFT SUMMARY PT IS A 65 Y/O MALE, ADMITTED FOR PNA. HE IS A&O X 3, BEDREST. NO C/O ACUTE PAIN, NAUSEA OR SOB. BP WAS LOW, IN THE 90S SYSTOLIC. VITAL SIGNS OTHERWISE STABLE. TOVAR IN PLACE, PATENT AND DRAINING. NO ACUTE CHANGES IN PT CONDITION NOTED. WILL CONTINUE TO MONITOR AND TREAT PER EMAR UNTIL HAND OFF TO DAY SHIFT RN.
--- NOTE | 2021-06-08 16:21 | NUR ---
SUMMARY- PT A/O X4, DEPENDANT IN CARE, INCONT OF BOWEL. TOVAR PATENT AND DRAINING. TOLERATING FOOD AND FLUID. WORKED WITH P.T. TODAY AND SAT AT THE EDGE OF BED AND DID SOME EXERCISES. AWAITING PLACEMENT TO [facility]. LUNGS OCC EXP WHEEZE, DIM BASES BUT ESSENTIALLY CLEAR. ROUTINE NEBS. ROOM AIR 96% SATS.
--- NOTE | 2021-06-09 03:55 | NUR ---
SHIFT SUMMARY ADMITTED FOR PNEUMONIA. PLAN IS FOR PLACEMENT. PICC LINE IN RUE. LISINOPRIL HELD THIS SHIFT DUE TO SOFT BP. PHYSICAL & OCCUPATIONAL THERAPY WORKING WITH THIS PT. TOVAR CATHETER IN PLACE FOR RETENTION. INCONINENT OF BM. A&O X3. PLEASANT AND COOPERATIVE WITH CARE.
--- NOTE | 2021-06-09 16:42 | NUR ---
SUMMARY- PT A/O X4, DEPENDANT IN CARE, BEDBOUND. WORKDED WITH PXochitlT. TODAY, SAT AT EDGE OF BED. TOLERATING FOOD AND FLUIDS. TOVAR FOR RETENTION DRAINING MED CREAR YELLOW. INCONT STOOL. DENIES PAIN . AWAITING SNF DISCHARGE.
--- NOTE | 2021-06-10 04:15 | NUR ---
SHIFT SUMMARY ADMITTED FOR PNEUMONIA. PLAN IS FOR PLACEMENT. SOFT BP'S, IS AWARE - SEE NURSING ORDER. TOVAR IN PLACE. PICC LINE IN RUE. [facility] SOFT DIET. WAS WHEELCHAIR BOUND, BUT HAS BEEN BEDRIDDEN DUE TO WEAKNESS. A&O X 3-4. HX OF CVA, LEFT SIDED WEAKNESS. CONFIDENTIAL PT. COOPERATIVE WITH CARE. [facility] PT.
[2021-06-10 08:15] LABS: Hematocrit 24.8 % (37.0-53.0); Hemoglobin 7.6 g/dL (13.5-17.5); Mean Corpuscular HGB 31.7 pg (26.0-34.0); Mean Corpuscular HGB Conc 30.6 g/dL (31.5-36.5); Mean Corpuscular Volume 103 fL (80-100); Mean Platelet Volume 9.2 fL (9.1-12.4); Platelet Count 148 K/mm3 (150-400); RDW Coefficient Variation 17.7 % (11.7-14.2); White Blood Cell Count 2.98 K/mm3 (4.00-11.30)
[2021-06-10 08:34] LABS: Alanine Aminotransfer (ALT/SGP 58 U/L (12-78); Albumin, Blood 2.7 g/dL (3.4-5.0); Albumin/Globulin Ratio 0.8 (0.8-1.8); Alk Phos 134 U/L (50-136); Anion Gap 2 mmol/L (6-16); Aspartate Aminotrans (AST/SGOT 23 U/L (12-37); Bilirubin, Total 0.3 mg/dL (0.1-1.0); Blood Urea Nitrogen 32 mg/dL (8-24); Bun/Creatinine Ratio 44.3 (12.0-20.0); CO2, Blood 33 mmol/L (21-32); Calcium, Blood 8.4 mg/dL (8.5-10.1); Chloride, Blood 100 mmol/L (98-108); Creatinine, Blood 0.72 mg/dL (0.60-1.20); Globulin, Blood 3.2 g/dL (2.2-4.0); Glomerular Filtration Rate >60 (60-); Glucose, Blood 78 mg/dL (70-99); Potassium, Blood 4.6 mmol/L (3.5-5.5); Sodium, Blood 135 mmol/L (136-145); Total Protein, Blood 5.9 g/dL (6.4-8.2)
--- NOTE | 2021-06-10 16:27 | NUR ---
PT IS A/OX3, PLEASANT AND COOPERATIVE. THE PT IS UP WITH MAX ASSIST USEING THE SIT TO STAND. THE PT WAS UP IN THE CHAIR FOR LUNCH TODAY AND FOR OVER AN HOUR AFTER UNTIL HE WAS TO UNCOMFORTABLE AND THEN WAS ASSISTED BACK TO BED. PT FELT SOB WITH ACTIVITY AND [id number] O2 FOR A SHORT TIME AT 2L/MIN. THE PT REPORTED MILD ABD PAIN TODAY. THE PT APPEARS TO BE BREATHING EASILY ON RA AT THIS TIME.CALL LIGHT IN REACH, WILL CONTINUE TO MONITOR AND ASSESS FOR CHANGES
[2021-06-11 08:11] LABS: HIV AB/P24 AG SCREEN Non Reactive (Non Reactive)
[2021-06-12 00:08] LABS: HBSAG SCREEN Negative (Negative); HCV AB <0.1 (0.0-0.9); HEP A AB, IGM Negative (Negative); HEP B CORE AB, IGM Negative (Negative)
--- NOTE | 2021-06-12 16:42 | NUR ---
PT IS A/OX3, PLEASANT AND COOPERATIVE. THE PT IS BEDREST LIFT PATIENT. THE PTS BP HAS BEEN IN THE UPPER 80[facility] AWARE, THE PT IS ASYMPTOMATIC BLOOD PRESSURE MEDICATIONS HELD. PT STATED THAT HE DID NOT SLEEP WELL LAST NOC AND DECLINED OT/PT THIS AM. PT NOW MORE RESTED AND IS WORKING WITH THE PHYSICAL THERAPIST AT THIS TIME. THE PT HAD A PARACENTISIS DONE TODAY AND TOLERATED THE PROCEDURE WELL. CALL LIGHT IN REACH. PT NOW IN A RECLINER. WILL CONTINUE TO MONITOR AND ASSESS FOR CHANGES
--- NOTE | 2021-06-13 17:23 | NUR ---
SHIFT SUMMARY: NO ACUTE EVENTS. CALM AND COOPERATIVE WITH CARE. DENIED PAIN. ANASARCA AND SCROTAL/PENILE EDEMA PRESENT. ON ROOM AIR; COARSE WET BREATH SOUNDS IN RLL. TOLERATING PO INTAKE. TOVAR DRAINING CONCENTRATED YELLOW URINE. SLEPT ALL AFTERNOON.
--- NOTE | 2021-06-14 06:29 | NUR ---
SHIFT SUMMARY - NO ACUTE CHANGES THROUGHOUT THIS SHIFT. PT SLEPT THROUGHOUT MOST OF THE NIGHT. PT DID GET SOB WITH ATTENDS CHANGE THIS AM. PT IS ON- SATS WERE 93% ON RA THIS AM - WITH PURSED LIP BREATHING SATS TO 95-96% - RT CALLED FOR BREATHING TREATMENT. PT SLEPT AT END OF THE BREATHING TREATMENT HE RECEIVED THIS AM. O2 SATS 100% AFTER RECEIVING BREATHING TREATMENT THIS AM. DURING ATTENDS CHANGE - ELEVATED SCROTUM ON WASHCLOTHS FOR COMFORT. CALL LIGHT WITHIN REACH. BED IN LOW POSITION. FLUIDS AT BEDSIDE. WILL CONTINUE TO MONITOR UNTIL AM SHIFT CHANGE.
[2021-06-14 08:52] LABS: Hematocrit 27.3 % (37.0-53.0); Hemoglobin 8.4 g/dL (13.5-17.5); Mean Corpuscular HGB 31.6 pg (26.0-34.0); Mean Corpuscular HGB Conc 30.8 g/dL (31.5-36.5); Mean Corpuscular Volume 103 fL (80-100); Mean Platelet Volume 9.1 fL (9.1-12.4); Platelet Count 129 K/mm3 (150-400); RDW Coefficient Variation 17.4 % (11.7-14.2); RDW Standard Deviation 64.9 fL (35.1-46.3); Red Blood Cell Count 2.66 M/mm3 (4.30-5.90); White Blood Cell Count 3.09 K/mm3 (4.00-11.30)
[2021-06-14 09:06] LABS: International Normalized Ratio 1.13; Prothrombin Time Results 11.8 Sec (9.7-11.5)
[2021-06-14 09:08] LABS: Albumin, Blood 2.9 g/dL (3.4-5.0); Anion Gap 4 mmol/L (6-16); Blood Urea Nitrogen 25 mg/dL (8-24); Bun/Creatinine Ratio 38.1 (12.0-20.0); CO2, Blood 30 mmol/L (21-32); Calcium, Blood 8.4 mg/dL (8.5-10.1); Chloride, Blood 100 mmol/L (98-108); Creatinine, Blood 0.66 mg/dL (0.60-1.20); Glomerular Filtration Rate >60 (60-); Glucose, Blood 92 mg/dL (70-99); Phosphorus, Blood 3.4 mg/dL (2.5-4.9); Potassium, Blood 4.6 mmol/L (3.5-5.5); Sodium, Blood 134 mmol/L (136-145)
--- NOTE | 2021-06-14 18:03 | NUR ---
PATIENT HAS MANY AREAS ON SKIN THAT ARE IN THE PROCESS OF HEALING. A COUPLE ARE OPEN. THE LEFT HEEL ULCER MEASURES 3X3 AND HAD VARELA EXUDATE. IMAGE CAPTURED AND PLACED IN CHART. PATIENT REPORTS PAIN AND SOB. LOVENOX WAS HELD TODAY,PER DOCTOR ORDER, AND WILL BE HELD TOMORROW- PATIENT IS DUE TO HAVE A THORACENTESIS IN THE MORNING TO DRAIN FLUID. THREE OF THE PATIENT BLOOD PRESSURE MEDICATION WERE HELD THIS AM BECAUSE OF HIS 87/52 BP READING. HE HAS EATEN AT LEAST SOME OF EACH MEAL AND IS DRINKING THE NUTRITIONAL SUPPLEMENT.
--- NOTE | 2021-06-14 19:18 | NUR ---
Respiratory started this patient on 2 liters o2 at this time. after a breathing treatment, his sa02 went down to 88. RT placed the 2 l and nursing will continue to monitor.
--- NOTE | 2021-06-15 03:51 | NUR ---
MOLD CARPENTER SUMMARY PATIENT HAD A FAIR SHIFT. HE IS ALERT AND ORIENTED, ABLE TO HIS MAKE NEEDS KNOWN. BP STILL LOW AND SCHEDULED MIDODRINE WAS ADMINISTERED. HE GOT HIS BREATHING TREATMENT TO HELP WITH SHORTNESS OF BREATH THAT WAS HIS MAIN CONCERN OVERNIGHT. HE ALSO HAS OXYGEN ON @2L. NO OTHER COMPLAINT LODGED, WILL CONTINUE TO MONITOR HIM.
[2021-06-15 06:58] LABS: Albumin, Blood 2.9 g/dL (3.4-5.0); Anion Gap 4 mmol/L (6-16); Blood Urea Nitrogen 26 mg/dL (8-24); Bun/Creatinine Ratio 46.3 (12.0-20.0); CO2, Blood 31 mmol/L (21-32); Calcium, Blood 8.5 mg/dL (8.5-10.1); Chloride, Blood 100 mmol/L (98-108); Creatinine, Blood 0.56 mg/dL (0.60-1.20); Glomerular Filtration Rate >60 (60-); Glucose, Blood 83 mg/dL (70-99); Potassium, Blood 4.8 mmol/L (3.5-5.5); Sodium, Blood 135 mmol/L (136-145)
[2021-06-15 08:39] LABS: Influenza A, PCR NEGATIVE (NEGATIVE); Influenza B, PCR NEGATIVE (NEGATIVE); Resp Syncytial Virus, PCR NEGATIVE (NEGATIVE); SARS-Cov-2 (COVID-19) PCR, MMC NEGATIVE (NEGATIVE)
--- NOTE | 2021-06-15 15:48 | NUR ---
PATIETN HAD THORACENTESIS. HE STATES THAT HE BELIEVES APROXIMATELY 1 LITER OF FLUID WAS REMOVED. HIS BREATHING IS EASIER- NOT MUCH ACCESSORY MUSCLE MOVEMENT WITH BREATH. HIS OXYGEN WAS REMOVED TO SEE IF HE COULD STAY OXYGENATED WITHOUT. AFTER APROX 45 MINUTES SA02 WAS AT 94 ON RA. WILL RECHECK IN LESS THAN ONE HOUR AND REAPPLY IF NEEDED. PATIENTS ABDOMEN IS DISTENDED AND APPEARS TO THIS CABINET INSTALLER TO BE ENLARGED SLIGHTLY COMPARED TO YESTERDAY. HE DOES SAY THAT THERE IS SOME PAIN WITH PRESSURE WHEN APPLIED TO THE AREA.
--- NOTE | 2021-06-15 21:44 | NUR ---
AWAKENED FOR ASSESSMENT AND HS MEDS. VERBAL RESPONSE APPROPRIATE TO QUESTIONS ASKED. VOICED DIDNT LIKE THE MARTIN, BUT LIKES APPLESAUCE. CALL LIGHT IN REACH
--- NOTE | 2021-06-16 03:42 | NUR ---
SEAT MAKER SUMMARY ALERT AND ORIENTED TO QUESTIONS ASKED. TOLERATED MEDS IN APPLESAUCE AT HS. HAS BEEN RESTING QUIETLY WITH FE INTERRUPTIONS SINCE THEN. CALL LIGHT IN REACH. TOVAR DRAINING YELLOW-BETZAIDA. EDEMA OF BLE CONTINUES. DRESSINGS OF BILAT FEET INTACT. NO COMPLAINTS VOICED THIS SHIFT. WILL CONT TO MONITOR.
[2021-06-16 08:28] LABS: Hematocrit 26.9 % (37.0-53.0); Hemoglobin 8.1 g/dL (13.5-17.5); Mean Corpuscular HGB 30.7 pg (26.0-34.0); Mean Corpuscular HGB Conc 30.1 g/dL (31.5-36.5); Mean Corpuscular Volume 102 fL (80-100); Mean Platelet Volume 9.1 fL (9.1-12.4); Platelet Count 123 K/mm3 (150-400); RDW Coefficient Variation 17.3 % (11.7-14.2); RDW Standard Deviation 64.4 fL (35.1-46.3); Red Blood Cell Count 2.64 M/mm3 (4.30-5.90); White Blood Cell Count 3.15 K/mm3 (4.00-11.30)
[2021-06-16 08:34] LABS: Albumin, Blood 2.8 g/dL (3.4-5.0); Anion Gap 5 mmol/L (6-16); Blood Urea Nitrogen 22 mg/dL (8-24); Bun/Creatinine Ratio 39.4 (12.0-20.0); CO2, Blood 31 mmol/L (21-32); Calcium, Blood 8.5 mg/dL (8.5-10.1); Chloride, Blood 99 mmol/L (98-108); Creatinine, Blood 0.56 mg/dL (0.60-1.20); Glomerular Filtration Rate >60 (60-); Glucose, Blood 81 mg/dL (70-99); Phosphorus, Blood 3.9 mg/dL (2.5-4.9); Potassium, Blood 4.5 mmol/L (3.5-5.5); Sodium, Blood 135 mmol/L (136-145)
--- NOTE | 2021-06-16 13:03 | NUR ---
Spiritual Care visit. Pt. is sitting up in the chair, and welcomes my visit. Pt. is pleasant and mildly unsettled about his placement after hospital discharge. Re-establish rapport and do a life review. Pt. is an [employer] , and served in [place]. This school commissioner verbalized respect and honor toward the pt. for his service to our country. Pt. gave me permission to pray for him "on my own time." This school commissioner will honor that request. Pt. displays evidence of excitement regarding the prospect of discharge and placement possibly as soon as tomorrow.
--- NOTE | 2021-06-16 17:31 | NUR ---
PT IS A/OX3, PLEASANT AND COOPERATIVE. THE PT IS UP WITH A LIFT. TODAY THE PT WAS ASSISTED UP TO THE RECLINER FOR DINNER AND STAYED THERE FOR ABOUT 1 HR BEFORE STATING THAT HE COULD NOT TOLERATE IT ANYMORE. THE PT WAS LIFTED BACK TO THE BED AND REPOSITIONED OFF OF HIS COCCYX. THE PT APPEARED TO BE BREATHING EASILY ON RA TODAY SO FAR. PTS BP LOW THIS AFTERNOON ORDERED MIDODRINE GIVEN, PT DENIED ANY LIGHTHEADEDNESS OR DIZZINESS. CALL LIGHT IN REACH, WILL CONTINUE TOP MONITOR AND ASSESS FOR CHANGES
--- NOTE | 2021-06-17 04:35 | NUR ---
SALESPERSON MEATS SUMMARY WAS INCONT OF FECES AT HS, CLEANED/CHANGED. VOICED EMBARRASSMENT, STAFF ENSURED HIM NOTHING TO BE EMBARRASSED ABOUT. PT CHEERED UP. TOVAR DRAINING. MEDS TOLERATED WELL. HOB REMAINS ELEVATED. HAS BEEN RESTING QUIETLY WITH FEW INTERRUPTIONS SINCE. CALL LIGHT IN REACH
[2021-06-17 05:42] LABS: Hematocrit 26.4 % (37.0-53.0); Hemoglobin 8.2 g/dL (13.5-17.5); Mean Corpuscular HGB 31.7 pg (26.0-34.0); Mean Corpuscular HGB Conc 31.1 g/dL (31.5-36.5); Mean Corpuscular Volume 102 fL (80-100); Mean Platelet Volume 9.2 fL (9.1-12.4); Platelet Count 121 K/mm3 (150-400); RDW Coefficient Variation 17.4 % (11.7-14.2); RDW Standard Deviation 64.4 fL (35.1-46.3); Red Blood Cell Count 2.59 M/mm3 (4.30-5.90); White Blood Cell Count 3.49 K/mm3 (4.00-11.30)
[2021-06-17 06:05] LABS: Albumin, Blood 2.8 g/dL (3.4-5.0); Anion Gap 1 mmol/L (6-16); Blood Urea Nitrogen 26 mg/dL (8-24); CO2, Blood 31 mmol/L (21-32); Chloride, Blood 101 mmol/L (98-108); Creatinine, Blood 0.68 mg/dL (0.60-1.20); Glomerular Filtration Rate >60 (60-); Glucose, Blood 80 mg/dL (70-99); Phosphorus, Blood 3.8 mg/dL (2.5-4.9); Potassium, Blood 4.5 mmol/L (3.5-5.5); Sodium, Blood 133 mmol/L (136-145)
--- NOTE | 2021-06-17 17:11 | NUR ---
NO CLINICAL CHANGES TODAY. IS A&OX4. DENIES PAIN. HIS BP MAINTAINED A MAP OF >60 TODAY. HE SAT IN A CH FOR ABOUT AN HOUR OR MORE TODAY HOWEVER HE DOES STATE HIS TAILBONE IS QUITE PAINFUL WHEN SITTING UP IN CH. PROVIDED HIM WITH A DONUT CUSHION TO SIT ON WHEN HE GETS UP NEXT. PICC DRSNG CHANGE DONE TODAY AND ALL 3 PORTS FLUSHED. FC DRAINING YELLOW URINE. CONTINUING TO WAIT ON SNF PLACEMENT.
--- NOTE | 2021-06-18 06:41 | NUR ---
SHIFT SUMMARY PATIENT ALERT AND ORIENTED X3. HAD NO COMPLAINTS OF PAIN. TREATED BY RT FOR SHORTNESS OF BREATH. NO ACUTE ISSUES NOTED OVERNIGHT. BED IN LOWEST POSITION WITH WHEELS LOCKED AND ALARM ON. CALL LIGHT WITHIN REACH. REPORT GIVEN TO ONCOMING RN.
--- NOTE | 2021-06-18 18:02 | NUR ---
SHIFT SUMMARY A&OX3. NO COMPLAINTS T/O SHIFT. RECEIVED TREATMENTS FROM RT. WORKED WITH OT AND UP TO CHAIR FOR LUNCH. NO SIGNIFICANT EVENTS. WILL CONTINUE TO MONITOR.
--- NOTE | 2021-06-19 04:16 | NUR ---
SHIFT SUMMARY 65 YR M ADMITTED ON 05/19/21 FOR PNEUMONIA. DNR. NO ACUTE CHANGES OVERNIGHT. PT SLEPT MOST OF THIS SHIFT SO THIS NURSE HAD LITTLE INTERACTION W/ HIM. NO C/O PAIN OR DISCOMFORT. HE IS AWAITING PLACEMENT. TOOK MEDS WHOLE W/ APPLESAUCE PER HIS PREFERENCE. BED IN LOW POSITION, CALL LIGHT WITHIN REACH.
--- NOTE | 2021-06-19 13:09 | NUR ---
NURSE NOTE NOTED PENIS VERY SWOLLEN COMPARED TO THIS MORNING. NOTIFIED ORDER PICKER/ASSEMBLER AND DOC. ADVISED TO ELEVATE ON PILLOWS AND MONITOR.
--- NOTE | 2021-06-19 19:14 | NUR ---
SHIFT SUMMARY A&O X3. ON RA RECEIVING BREATHING TREATMENTS T/O SHIFT. RECEIVED BEDBATH TODAY AND DRESSING ON LEFT HEEL WOUND CHANGED. SMALL AMOUNT OF VARELA DRAINAGE. WORKED WITH PT/OT TODAY. 2PA UP TO CHAIR AND LIFT USED TO GET BACK TO BED. NOTED PENILE SWELLING. ELEVATED SCROTUM ON ROLLED WASH CLOTH. VSS. WILL CONTINUE TO MONITOR.
--- NOTE | 2021-06-20 06:32 | NUR ---
SHIFT SUMMARY 65 YR M ADMITTED ON 05/19/21 FOR PNEUMONIA. DNR. PT SEEMED TO BE IN GOOD SPIRITS THIS SHIFT AND TOOK HIS MEDS WHOLE IN APPLESAUCE W/ NO DIFFICULTY. SWELLING OF THE PENIS AND SCROTUM APPEAR TO HAVE REDUCED SIGNIFICANTLY SINCE YESTERDAY. PT STATES THEY ARE STILL A BIT SORE THOUGH. SKIN FOLDS AROUND THE TIP OF PENIS ARE STILL A BIT RED AND BARRIER CREAM WAS APPLIED.
--- NOTE | 2021-06-20 19:07 | NUR ---
SHIFT SUMMARY; PATIENT HAD UNEVENTFUL DAY NO ACUTE CHANGES IN CONDITION NOTED. PATIENT HAS PLEASANT AFFECT SMILING AND JOKING WITH STAFF DURING DAY. PATIENT REMAINS IN BED DURING DAY. SCROTAL EDEMA IS LESS AND SO IS HIS BILATERAL LOWER EXTREMITY EDEMA. VITAL SIGNS ARE WNL. PATIENT DOES NOT REQUIRE ASSIT WITH EATING MEALS. HE DOES NEED A SET UP AND SOME FOODS NEED TO BE CUT IN SMALLER PORTIONS. HE TAKES HIS PILLS WHOLE WITH APPLESAUCE ONE OR TWO AT A TIME. REPORT AT SHIFT CHANGE TO ONCOMING RN.
--- NOTE | 2021-06-21 03:10 | NUR ---
SHIFT SUMMARY 65 YR M ADMITTED ON 05/19/21 FOR PNEUMONIA. DNR. PNEUMONIA HAS BEEN RESOLVED AND PT IS WAITING FOR PLACEMENT. NO ACUTE CHANGES OVERNIGHT. SCROTAL SWELLING SEEMS TO BE RESOLVING AND PT HAS BEEN PLEASANT AND COOPERATIVE. MEDS WHOLE W/ APPLESAUCE.
--- NOTE | 2021-06-21 17:53 | NUR ---
SHIFT SUMMARY; PATIENT HAD UNEVENTFUL DAY. NO ACUTE CHANGES IN CONDITION NOTED. HE ATE ALL MEALS WITHOUT ASSIST AND SLEPT ON AND OFF MOST OF DAY. HE IS AO X 4 TODAY. HE HAD LARGE SOFT STOOL TODAY. HIS TOVAR CATHETER DRAINING CLEAR YELLOW URINE. PATIENT HAS DISTENDED FIRM ABDOMEN. HE DENIES ANY PAIN OR DISCOMFORT. HIS B/P IS SOFT AT 102 SYSTOLIC. PATIENT RECEIVES MIDODRINE FOR LOW B/P. WAITING FOR PLACEMENT AT SNF FACILITY.
[2021-06-22 05:11] LABS: Hematocrit 29.8 % (37.0-53.0); Mean Corpuscular HGB 30.8 pg (26.0-34.0); Mean Corpuscular HGB Conc 30.2 g/dL (31.5-36.5); Mean Corpuscular Volume 102 fL (80-100); Mean Platelet Volume 9.1 fL (9.1-12.4); Platelet Count 114 K/mm3 (150-400); RDW Coefficient Variation 17.1 % (11.7-14.2); Red Blood Cell Count 2.92 M/mm3 (4.30-5.90); White Blood Cell Count 4.78 K/mm3 (4.00-11.30)
[2021-06-22 05:29] LABS: Anion Gap 3 mmol/L (6-16); Blood Urea Nitrogen 21 mg/dL (8-24); Bun/Creatinine Ratio 35.8 (12.0-20.0); CO2, Blood 32 mmol/L (21-32); Calcium, Blood 8.4 mg/dL (8.5-10.1); Chloride, Blood 102 mmol/L (98-108); Creatinine, Blood 0.59 mg/dL (0.60-1.20); Glomerular Filtration Rate >60 (60-); Glucose, Blood 81 mg/dL (70-99); Potassium, Blood 4.3 mmol/L (3.5-5.5); Sodium, Blood 137 mmol/L (136-145)
--- NOTE | 2021-06-22 06:22 | NUR ---
SHIFT SUMMARY: NO SIGNIFICANT EVENTS OVER NIGHT, PATIENT HAS FC FOR RETENTION, PICC WITH GOOD BLOOD RETURN USED FOR LABS THIS AM. ABDOMEN DISTENTED, SCROTAL AND BLE EDEMA. COARSE LUNGS. SLEPT WELL THROUGH THE NIGHT. TURNED Q2. NEEDS ENCOURGEMENT TO PARTICPATE IN DAILY CARE AND EATING. WCTM
--- NOTE | 2021-06-22 09:00 | NUR ---
PT PLEASANT SOMEWHAT SLOW TO RESPOND TO QUESTIONS. A/O X3, STATES RETIRED [employer]. NO C/O PAIN. H/R REG, NO MURMER NOTED. NO TELE. LUNGS CLEAR THIS AM. REWP EASY, UNLABORED. ON R/A. BT X4 LAST BM YEST PER PT. SOFT. VOIDS TOVAR CATH. YELLOW FLUID DRAINING. EDEMA NOTED IN SCROTAL. AND BLE X2 BUT LOOKS DRYING OUT. OLD SORES / ULCERS NOTED ON BOTTOM AND SACRUM. PT STATES BEEN THERE LONG TIME. BED IN LOW POSITION,C ALL LITE IN REACH, BED ALARM ON FOR SAFETY
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
--- NOTE | 2021-06-22 15:48 | NUR ---
AIDE STATES BP L ARM 90/XX, R ARM IS 121/70. NOTIFIED DR MENDEZ. NO NEW ORDERS.
--- NOTE | 2021-06-22 17:57 | NUR ---
pt reports he is doing well, no complaints or needs at this time, no acute changes this shift, call light in reach.
--- NOTE | 2021-06-23 04:31 | NUR ---
SHIFT SUMMARY: NO SIGNIFCANT EVENTS ON NOC. SCROTAL AND PENILE EDEMA INCREASEING. TOVAR CATH IN PLACE. LACKS MOTIVATION TO PARTICIPATE IN CARE OR EAT, TURN Q2.
--- NOTE | 2021-06-23 17:09 | NUR ---
SHIFT SUMMARY PATIENT IS ALERT AND ORIENTED X4. PATIENT HAS TOVAR FOR RETENTION. PATIENT HAS HAD 2 BOWEL MOVEMENTS THAT ARE SOFT, PATIENT REFUSED STOOL SOFTNER. PATIENT HAS SCROTAL, PENIS AND LOWER LEG EDEMA. PATIENT HAS HAD NO ACUTE EVENTS THIS SHIFT. VITAL SIGNS REVIEWED. PATIENT HAS BEEN UP IN CHAIR FOR LUNCH AND ENCOURAGED TO BE UP IN CHAIR FOR 2 OR MORE MEALS, PATIENT NEEDS MOTIVATION FOR ACTIVITY. BED IN LOCKED AND LOWEST POSITION. CALL LIGHT IN PLACE. WILL MONITOR UNTIL SHIFT CHANGE.
--- NOTE | 2021-06-24 01:26 | NUR ---
TIEDOWN OPERATOR SUMMARY PATIENT HAD A FAIR SHIFT. NO OVERNIGHT ISSUES. HIS VITALS REMAINED STABLE. HE HAD JEET COMPLAINTS. WILL CONTINUE TO MONITOR HIM
--- NOTE | 2021-06-24 08:22 | NUR ---
pt laying in bed awake a/ox3, cooperative with care, follows commands well, flat affect, lungs are clear t/o, resp even and unlabored, no cough noted, reports occ sob, currently on r/a but can use 2liters prn, hrr, edema noted to b/l le, +3 to right le, +4 to left, legs are going down, shakeel area edema, picc line to citlali, site is clear and patent, btx4, abd soft nontender, voids via denton cath at this time for retention, draining clear yellow urine, skin is very dry with mulitple wounds to b/l le, healing, maew, general weakness, baudilio, am care complete, call light in reach.
--- NOTE | 2021-06-24 14:34 | NUR ---
PROCESS SPECIALIST REPORT OF DARK TARRY STOOL. H/H IS INCREASING. WILL NOTE DR WHEN SEE.
--- NOTE | 2021-06-24 18:12 | NUR ---
ASSUEMED PT TODAY AT 1300. HE HAS BEEN PLEASANT TODAY. NO C.O PAIN TO ME. DID GET FROM CHAIR TO BED WITH STAND LIFT. DID WELL. PT HAD DARK TARRY STOOL PER [employer] D[employer] TODAY. SPOKE TODR. H/H FOR TOMORROW . CONTINUE TO MONITOR. NO OTHER COCERNS NOTED. BOTTOM WOUNDS PRESENT STABLE. MEPILEX APPLIED. BED IN LOW POSITION,C ALL LITE IN REACH, BED ALARM ON FOR SAFETY
[2021-06-25 04:55] LABS: Hematocrit 28.8 % (37.0-53.0); Hemoglobin 8.7 g/dL (13.5-17.5)
--- NOTE | 2021-06-25 05:08 | NUR ---
SHIFT SUMMARY PT A/O X4 WITH FLAT AFFECTAND HAS BEEN COOPERATIVE. LUNGS WITH WHEEZES THRU OUT. O2 AT 2L/M BNC AND O2 SAT 98%. PT C/O SOB X1 THIS SHIFT AND RT GAVE A PRN TX WHICH WAS EFFECTIVE, EDEMA NOTED IN TRUNK, SCROTAL, PENIS AND BLE. BLE ELEVATED ON PILLOWS, DENIES ANY PAIN . PICC LINE INTACT RUE AND ALL PORTS DRAW BLOOD. PICC LINE DRSG CHANGED AT 0330. HAD ONE SMALL DARK STOOL THIA AM AND H/H STABLE THIS AM.TOVAR P/D. TURNED AND REPOSITIONED Q 2HRS. APPEARS TO BE RESTING WELL.
--- NOTE | 2021-06-25 10:20 | NUR ---
AM NOTE MR POLO IS RESTING IN BED THIS MORNING, DENIES ANY PAIN AT THIS TIME. NO SOB THIS MORNING. MOIST NON PRODUCTIVE COUGH, L LUNG SOUNDS DIMINISHED. ABDOMEN FIRM AND ROUND, BOWEL SOUNDS ACTIVE. DARK BM THIS AM. SKIN TEARS TO BUTTOCKS, LEGS AND FEET. Q2HRLY TURNS DONE. TOOK AM MEDS WITH APPLESAUSE, NO PROBLEMS SWALLOWING. TOVAR IN PLACE, TOVAR CARE DONE. BED LOW, CALL LIGHT IN REACH.
--- NOTE | 2021-06-25 16:25 | NUR ---
RN NOTE MEPILEX DRESSING TO BUTTOCKS CHANGED AGAIN AFTER BM. MEPILEX DRESSING CHANGED TO BOTH HEELS. APPROX 2CM ROUND PRESSURE DECUB SEEN ON BACK OF LEFT HEEL. NO SKIN BREAKDOWN NOTED, BUT MAY HAVE UNSEEN TISSUE DAMAGE UNDERNEITH. RIGHT HEEL LOOKS LIKE A PREVENTATIVE MEPILEX, ALSO CHANGED. PT DOING WELL WITH COMPLYING WITH TURNING AND KEEPING PRESSURE OFF BUTTOCKS AND HEELS. HE SAID HIS BREATHING FEELS EASIER NOW, BUT STILL FEELS SOB WHEN THE HEAD OF BED IS FLAT FOR TURNING.
--- NOTE | 2021-06-25 17:12 | NUR ---
SHIFT SUMMARY MR POLO FEEL SOME SOB AT TIME, O2 SAT IN THE 90S ON 2L NC, GIVEN TREATMENT BY RT. MORE NOTICABLE TO PT WHEN HOB FLAT, BUT NO DISTRESS NOTED, TALKING IN FULL SENTENCES AND WATCHING TV TODAY. HE SAT OUT IN THE CHAIR FOR LUNCH BUT TIRED AFTER ABOUT AN HOUR. TRANSFER WITH SIT-STAND LIFT AND TWO STAFF. HE DECLINED TO BE OUT FOR SUPPER. 2 DARK BMS TODAY. TURNING WELL, KEEPING OFF HIS BUTTOCKLS AND HEELS AND PROTECTING HIS PRESSURE SORE AREAS. SEE PRIOR NOTES ALSO. ORIENTATED TO SELF, PLACE, NOT DATE, FORGETFUL CONVERSATION AT TIMES. BED LOW, CALL LIGHT IN REACH.
--- NOTE | 2021-06-26 06:41 | NUR ---
SHIFT SUMMARY PT REPORTS HAVING DIFFICULTY SLEEPING, A/O X 4, GENERALIZED WEAKNESS NOTED X 4 EXTREM. PT SOB WITH ACTIVITY, O2 ON AT 2L PER N/C, RT NOTIFIED FOR NEB TX PER PT REQUEST. LUNGS WITH SCATTERED WHEEZES NOTED, DIMINISHED THROUGHOUT. ABD DISTENDED, FIRM, PT INCONTINENT OF BM X 2 THIS SHIFT. BLE'S AND SCROTUM/GROIN AREA WITH 2-3+ EDEMA NOTED. SMALL, OPEN AREA TO COCCYX, MEPILEX COVERING SITE. ANTICIPATE D/C WHEN PLACEMENT DETERMINED.
--- NOTE | 2021-06-26 18:04 | NUR ---
PATIENTS PRESSURE WAS LOW THIS AM. ALL BP MEDS HELD. AN EXTRA DOSE OF MIDIRONE WAS ORDERED STAT AND GIVEN. PATIENTS BREATHING SHALLOW, AND OXYGEN SATURATION DROPPING. PROVIDER ORDERED THORACENTESIS. 1 LITER PULLED. CHEST XRAY DONE SHOWING A DECREASED PLEURAL EFFUSION AFTER THORACENTESIS- RESIDUAL RIGHT EFFUSION AND BASILAR ATELECTASIS STILL PRESENT WITH A SM LEFT PLEURAL EFFUSION SUSPECTED. PATIENT FEELS MUCH BETTER AFTER PROCEDURE-
--- NOTE | 2021-06-27 06:07 | NUR ---
SHIFT SUMMARY PT RESTED WELL TONIGHT, C/O SOB X 1, RT NOTIFIED AND BREATHING TX GIVEN PER MAR. LUNGS DIMINISHED, LLOYD 2-3L O2 VIA N/C, VSS, TOVAR PATENT WITH ADEQUATE URINE OUTPUT. PT REPOSITIONED FOR COMFORT AND TO PREVENT SKIN BREAKDOWN, MEPILEX TO COCCYX AND BILAT HEELS. ANTICIPATE D/C WHEN PLACEMENT DETERMINED.
--- NOTE | 2021-06-27 18:20 | NUR ---
SHIFT SUMMARY: NO ACUTE EVENTS. WAS SEEN BY SPEECH THERAPY, DIET ADVANCED TO SOFT BITE SIZE. DENIED SOB, STATED IS BREATHING A BIT BETTER TODAY. DENIED PAIN. ON O2 @ 2 L/MIN NC. TOVAR DRAINING CONCENTRATED YELLOW URINE. WAS UNABLE TO GET FROM BED TO CHAIR USING [id number] FOR LUNCH AND DECLINED TO DO SO FOR DINNER.
--- NOTE | 2021-06-28 07:38 | NUR ---
SHIFT SUMMARY PT RESTED FAIRLY WELL, C/O SOB OCCASIONALLY, LUNGS WITH EXP WHEEZES HEARD, DIM IN BASES, ON 2L O2 VIA N/C, RESP TX PER RT. SKIN DRY, FLAKY TO BLE'S, LOTION APPLIED. BILAT HEELS WITH MEPILEX IN PLACE, ELEVATED ON PILLOWS. MEPILEX TO COCCYX, TOVAR PATENT WITH CLEAR, YELLOW URINE NOTED. PT A/O X 4, GENERALIZED WEAKNESS NOTED, 2+ EDEMA NOTED TO BLE'S. PT REPOSITIONED FOR COMFORT AND TO PREVENT FURTHER SKIN BREAKDOWN. ANTICIPATE D/C WHEN PLACEMENT DETERMINED.
--- NOTE | 2021-06-28 16:38 | NUR ---
SHIFT SUMMARY PT AOX4; CALLS APPROPRIATELY. DENIES ANY PAIN. EDEMA ON BLE AND FRAGILE SKINS WITH SCABS THROUGHOUT THE BODY. REPLACED NEW MEPELEX ON BUTTOCK AREA STAGE 2 ULCER. Q2 TURN. PT HAS TOVAR DRAINING AND PATENT. PT STILL AWAITS FOR PLACEMENT. BED IS IN THE LOWEST POSITION AND CALL LIGHT WITHIN REACH
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
--- NOTE | 2021-06-29 17:04 | NUR ---
SHIFT SUMMARY PT REMAINS A&OX4. F/C DRAINING YELLOW URINE. SAT UP IN TODAY. UP OUT OF BED VIA STEDY LIFT & GAIT BELT WITH MOD ASSIST X'S 2. 1 LARGE LOOSE INCONTINENT BM TODAY. SPONGE DRESSSING APPLIED TO COCCYX. PT DENIES PAIN, N/V, DYSPNEA AND CP. ON 1 L O2 SATS 90-94%. CONTINUING TO WAIT ON SNF PLACEMENT.
--- NOTE | 2021-06-30 03:14 | NUR ---
SHIFT SUMMARY NO ACUTE CHANGES OVERNIGHT. MILDLY HYPOTENSIVE (HELD BP MED AND MONITORED) AT THE BEGINNING OF SHIFT BUT REMAIN ASYMPTOMATIC. TOVAR REMAIN IN PLACED AND PATENT. 1L NC, O2 OVERNIGHT WITH SAT AT 93%, ATTEMPT TO PUT ON ROOM AIR, PT DESATS AT 85-87%. LUNGS ARE DIMINISHED. ENC TO TAKE DEEP BREATHS. BREATHING TX RECIEVED FROM R.T.. AOX3-4. NO STOOLS OVERNIGHT. PT REFUSE TO TAKE STOOL SOFTNERS LAST NIGHT. CALL LIGHT WITHIN REACH. WILL CONTINUE TO MONITOR PT. REPORT TO ONCOMING NURSE.
[2021-06-30] MEDS ORDERED: JUVEN PACKET1 EAC3 PO (13:16)
[2021-06-30] MEDS ORDERED: ALBU2.5V5 INH (13:16)
[2021-06-30] MEDS ORDERED: Acerola C500 MG PO (13:17)
[2021-06-30] MEDS ORDERED: ATOR40TA PO (13:18)
[2021-06-30] MEDS ORDERED: DIGOX125 MC1 PO (13:18)
[2021-06-30] MEDS ORDERED: DOCU100 PO (13:19)
[2021-06-30] MEDS ORDERED: LEVSOD137 PO (13:20)
[2021-06-30] MEDS ORDERED: FERROUS SULFAT324 MG PO (13:20)
[2021-06-30] MEDS ORDERED: Lisinopril2.5 MG PO (13:21)
[2021-06-30] MEDS ORDERED: MELATONIN5 M1 PO (13:21)
[2021-06-30] MEDS ORDERED: Cytomel5 MCG PO (13:21)
[2021-06-30] MEDS ORDERED: METO25ER PO (13:22)
[2021-06-30] MEDS ORDERED: MIDO5 PO (13:23)
[2021-06-30] MEDS ORDERED: SPIR25 PO (13:23)
[2021-06-30] MEDS ORDERED: TAMS.4ER PO (13:24)
[2021-06-30] MEDS ORDERED: TORSE20 PO (13:24)
[2021-06-30] MEDS ORDERED: ASPI81CH PO (13:25)
[2021-06-30] MEDS ORDERED: MULVITA PO (13:25)
[2021-06-30] MEDS ORDERED: VITAMIN D5000 UNIT PO (13:25)
[2021-06-30 14:18] LABS: Influenza A, PCR NEGATIVE (NEGATIVE); Influenza B, PCR NEGATIVE (NEGATIVE); Resp Syncytial Virus, PCR NEGATIVE (NEGATIVE); SARS-Cov-2 (COVID-19) PCR, MMC NEGATIVE (NEGATIVE)
--- NOTE | 2021-06-30 16:19 | NUR ---
DISCHARGE PATIENT TRANSPORTED VIA GURNEY BY [facility]. DISCHARGE PACKET SENT TO [facility]. MEDICATIONS FAXED TO [facility]. PICC LINE REMOVED BY CHARGE NURSE. GUY PATENT AND DRAINING AT TIME OF DISCHARGE. PATIENT ON 1L VIA N/C. REPORT CALLED TO RN AT [facility].
== END 2021-06-30 16:09 | DRG 193 ==
LOC: ER 09:28 → MEDS 12:58 → ICUE 12:58 → PCU 12:58 → MEDS 14:51 → PCU 05-20 08:12 → ICUE 05-21 08:30 → PCU 05-25 18:35 → MEDS 05-31 22:06
PROVIDERS: Emergency Medicine; Internal Medicine; Internal Medicine Cardiovascular Disease; ADMIT Internal Medicine
PROC: 3E03329 Introduction of Other Anti-infective into Peripheral Vein, Percutaneous Approach (ICD-10-PCS; 2021-05-19)
PROC: 5A09457 Assistance with Respiratory Ventilation, 24-96 Consecutive Hours, Continuous Positive Airway Pressure (ICD-10-PCS; 2021-05-19)
PROC: 0W9930Z Drainage of Right Pleural Cavity with Drainage Device, Percutaneous Approach (ICD-10-PCS; principal; 2021-05-20)
PROC: 05HB33Z Insertion of Infusion Device into Right Basilic Vein, Percutaneous Approach (ICD-10-PCS; 2021-05-22)
PROC: 0W9G3ZZ Drainage of Peritoneal Cavity, Percutaneous Approach (ICD-10-PCS; 2021-06-15)
PROC: 0W9930Z Drainage of Right Pleural Cavity with Drainage Device, Percutaneous Approach (ICD-10-PCS; 2021-06-15)
PROC: 0W9930Z Drainage of Right Pleural Cavity with Drainage Device, Percutaneous Approach (ICD-10-PCS; 2021-06-26)
DX: J18.9 Pneumonia, unspecified organism (principal); I50.23 Acute on chronic systolic (congestive) heart failure; J96.01 Acute respiratory failure with hypoxia; E43 Unspecified severe protein-calorie malnutrition; R57.0 Cardiogenic shock; E03.5 Myxedema coma; J44.0 Chronic obstructive pulmonary disease with (acute) lower respiratory infection; L97.929 Non-pressure chronic ulcer of unspecified part of left lower leg with unspecified severity; E87.2 Acidosis; D61.818 Other pancytopenia; J91.8 Pleural effusion in other conditions classified elsewhere; R18.8 Other ascites; I42.0 Dilated cardiomyopathy; T76.11XA Adult physical abuse, suspected, initial encounter; J44.1 Chronic obstructive pulmonary disease with (acute) exacerbation; Z28.21 Immunization not carried out because of patient refusal; I25.10 Atherosclerotic heart disease of native coronary artery without angina pectoris; I25.5 Ischemic cardiomyopathy; Z59.00 Homelessness unspecified; Z66 Do not resuscitate; R13.12 Dysphagia, oropharyngeal phase; F17.210 Nicotine dependence, cigarettes, uncomplicated; I08.1 Rheumatic disorders of both mitral and tricuspid valves; E03.9 Hypothyroidism, unspecified; K74.60 Unspecified cirrhosis of liver; N40.1 Benign prostatic hyperplasia with lower urinary tract symptoms; R33.8 Other retention of urine; I50.811 Acute right heart failure; I27.20 Pulmonary hypertension, unspecified; D69.6 Thrombocytopenia, unspecified; Z20.822 Contact with and (suspected) exposure to COVID-19; R31.9 Hematuria, unspecified; L97.519 Non-pressure chronic ulcer of other part of right foot with unspecified severity; Z95.1 Presence of aortocoronary bypass graft
CPT/HCPCS: 0241U; 32555; 36415; 36569; 49083; 51701; 70450; 71045; 71250; 74176; 74177; 74230; 76700; 80048; 80053; 80069; 80074; 80076; 81001; 82040; 82105; 82140; 82550; 82607; 82728; 82746; 82803; 83540; 83550; 83605; 83735; 84100; 84145; 84157; 84436; 84439; 84443; 84478; 84481; 84484; 85014; 85018; 85025; 85027; 85610; 85730; 87040; 87070; 87086; 87205; 87389; 88108; 88305; 88342; 89051; 92526; 92610; 92611; 93005; 93010; 93306; 93922; 94640; 94660; 94664; 94668; 94760; 94762; 96365; 96366; 96375; 97110; 97112; 97116; 97161; 97166; 97530; 97535; 99285-25; A9270; C1751; G0480; J0456; J0696; J1160; J1250; J1650; J1720; J1940; J2916; J3010; J3411; J7030; J7040; J7050; J7060; P9041; Q9967